=== PATIENT | female | born 1950 | race Caucasian/White ===

== ENCOUNTER 2017-11-15 15:24 | Inpatient (IN) | payer MEDICARE ==
[2017-11-15] MEDS ORDERED: Ondansetron INJ* 2 MG/ML VIAL IV ONE (16:46)
[2017-11-15] MEDS ORDERED: NS 0.9% 1000 ML* 1,000 ML IV ONE (16:46)
[2017-11-15 20:57] LABS: Hematocrit 34 % (35-47); Mean Corpuscular HGB Conc 32 g/dl (31-36); Mean Corpuscular Hemoglobin 30 pg (27-31); Mean Corpuscular Volume 93 fL (80-97); Mean Platelet Volume 7 um3 (7.4-10.4); Platelet Count 231 10^3/ul (150-450); Red Blood Count 3.64 10^6/ul (4.0-5.4); Red Cell Distribution Width 14 % (10.5-15); White Blood Count 24.5 10^3/ul (3.5-10.8)
[2017-11-15 21:13] LABS: EGFR Non-African American 49.2 (>60)
[2017-11-15 21:23] LABS: Monocytes % 2 % (0-13)
[2017-11-15] MEDS ORDERED: NS 0.9% 1000 ML*IV.FLUID IV ONE (21:34)
[2017-11-15] MEDS ORDERED: Levofloxacin 500 MG IVPREMIX(* 500 MG/100 ML BAG IVPB ONE (21:36)
[2017-11-15] MEDS ORDERED: metroNIDAZOLE TAB* 250 MG PO ONE (21:36)
[2017-11-15] MEDS ORDERED: Acetaminophen TAB* 325 MG PO ONE (21:43)
[2017-11-15 22:05] LABS: ABS Neutrophils 23.6 10^3/ul (1.5-7.7)
--- NOTE | 2017-11-15 23:50 | ED ---
Nitish Davidson Gabriel, scribed for Luz Morrison MD on 11/15/17 at 2331 . Progress - Progress Note Progress Note: This patient was signed out from Dr. Fallon, pending disposition. Patient is a 67 F with n/v/d and abd pain. Pt was seen and admitted at [facility] twice in the last two weeks. The patient was feeling better and went to work today but symptoms returned. Currently she is febrile. CXR shows no acute process. Dx gastroenteritis 22:51 We discussed patient care with Dr. Lorenz and they recommended not to perform another CT because the patient has had 2 in the last two weeks. She recommended antibiotic use and accepts the patient for admittance. Pt will be admitted to the hospitalist. Procedure: Nursing staff was not able to get blood through the veins for blood work. So I performed right brachial artery stick and got 30cc of blood. Physical exam VITAL SIGNS: Reviewed. GENERAL: Patient is a well-developed and nourished female who is lying comfortable in the stretcher. Patient is not in any acute respiratory distress. HEAD AND FACE: No signs of trauma. No ecchymosis, hematomas or skull depressions. No sinus tenderness. EYES: PERRLA, EOMI x 2, No injected conjunctiva, no nystagmus. EARS: Hearing grossly intact. Ear canals and tympanic membranes are within normal limits. MOUTH: Oropharynx within normal limits. NECK: Supple, trachea is midline, no adenopathy, no JVD, no carotid bruit, no c- spine tenderness, neck with full ROM. CHEST: Symmetric, no tenderness at palpation LUNGS: Clear to auscultation bilaterally. No wheezing or crackles. CVS: Regular rate and rhythm, S1 and S2 present, no murmurs or gallops appreciated. ABDOMEN: mild abdominal distension with hypoactive bowel sounds EXTREMITIES: FROM in all major joints, no edema, no cyanosis or clubbing. NEURO: Alert and oriented x 3. No acute neurological deficits. Speech is normal and follows commands. SKIN: Dry and warm Course/Dx - Diagnoses Provider Diagnoses: Gastroenteritis The documentation as recorded by the Nitish bacon Gabriel accurately reflects the service I personally performed and the decisions made by , Luz Morrison MD.
[2017-11-16] MEDS ORDERED: Dextrose 50% Syringe 50 ML* 25 GM/50 ML SYRINGE IV PUSH PRN (00:17)
[2017-11-16] MEDS ORDERED: Magnesium Sulfate IV* 3 GM in NS 0.9% 100 ML* 100 ML IVPB ONE (00:42)
[2017-11-16] MEDS ORDERED: Magnesium Sulfate 2 GM IV IVPB ONE (01:00)
[2017-11-16] MEDS: Enoxaparin(*) 40 MG/0.4 ML SYR SUBCUT SCH ×2 (01:55→23:57)
[2017-11-16] MEDS: NS 0.9% 1000 ML* 1,000 ML IV SCH ×2 (02:00→20:12)
[2017-11-16] MEDS ORDERED: Magnesium Sulfate 1 GM IV* 1 GM/100 ML BAG IV ONE (02:00)
--- NOTE | 2017-11-16 07:44 | RAD ---
INDICATION: Fever COMPARISON: November 09, 2016 TECHNIQUE: An AP portable view obtained at 2200 hours is submitted. This examination is limited due to motion artifact FINDINGS: Bones/Soft Tissues: There are no acute bony findings. Cardiomediastinal: The cardiomediastinal silhouette is normal. Lungs: There are no gross infiltrates. Pleura: There are no pleural effusions. Other: None IMPRESSION: LIMITED EXAMINATION DUE TO MOTION. NO GROSS ABNORMALITIES. SUGGEST REPEATING THE EXAMINATION IF CLINICALLY INDICATED.
[2017-11-16 07:56] LABS: Hematocrit 28 % (35-47); Hemoglobin 9.4 g/dl (12.0-16.0); Mean Corpuscular HGB Conc 34 g/dl (31-36); Mean Corpuscular Hemoglobin 31 pg (27-31); Mean Corpuscular Volume 91 fL (80-97); Mean Platelet Volume 8 um3 (7.4-10.4); Platelet Count 200 10^3/ul (150-450); Red Blood Count 3.06 10^6/ul (4.0-5.4); Red Cell Distribution Width 14 % (10.5-15); White Blood Count 17.6 10^3/ul (3.5-10.8)
[2017-11-16 08:10] LABS: EGFR Non-African American 41.3 (>60)
--- NOTE | 2017-11-16 08:17 | RAD ---
INDICATION: Pain and swelling. COMPARISON: None TECHNIQUE: Duplex interrogation of the Lowerextremity was performed. FINDINGS: Deep veins: The common femoral, great saphenous, profunda femoris, proximal, mid, and distal deep femoral, popliteal, posterior tibial, and peroneal veins are patent. There is normal compressibility, augmentation, and phasic flow. Superficial veins: There are no findings of superficial thrombophlebitis. Popliteal fossa:There is no evidence of a popliteal cyst. Soft tissues:There are no soft tissue abnormalities. IMPRESSION: Normal examination. No evidence of deep venous thrombosis
[2017-11-16 08:29] LABS: ABS Basophils 0.1 10^3/ul (0-0.2); ABS Eosinophils 0.2 10^3/ul (0-0.6); ABS Lymphocytes 0.4 10^3/ul (1.0-4.8); ABS Monocytes 0.8 10^3/ul (0-0.8); ABS Neutrophils 16.1 10^3/ul (1.5-7.7); ABS Nucleated RBC 0 10^3/ul; Eosinophil % 0.9 % (0-6); Lymphocyte % 2.3 % (25-47); Nucleated Red Blood Cells % 0
[2017-11-16] MEDS: Mometasone/Formoter 100/5 MDI INH SCH ×2 (08:31→20:55)
[2017-11-16] MEDS: Losartan TAB* 25 MG PO SCH (08:35)
[2017-11-16] MEDS: amLODIPine TAB* 5 MG PO SCH (08:36)
[2017-11-16] MEDS: metroNIDAZOLE TAB* 250 MG PO SCH ×2 (08:36→20:15)
[2017-11-16] MEDS: Ondansetron INJ* 2 MG/ML VIAL IV PRN (08:37)
[2017-11-16] MEDS: guaiFENesin ER TAB 600 MG PO SCH ×2 (08:37→20:15)
[2017-11-16] MEDS: Clopidogrel TAB* 75 MG PO SCH (08:37)
[2017-11-16] MEDS: Insulin LISPRO* 1 UNITS UNIT SUBCUT SCH ×4 (08:38→21:46)
[2017-11-16 08:47] LABS: Urine Appearance Cloudy; Urine Blood 1+ (Negative); Urine Color Amber; Urine Ketones Negative (Negative); Urine Protein 2+(100 mg/dL) (Negative); Urine Specific Gravity 1.021 (1.010-1.030); Urine Urobilinogen Negative (Negative)
[2017-11-16] MEDS ORDERED: Insulin Detemir (NF) 100 UNIT/ML 10 ML VIAL SUBCUT SCH (09:00)
--- NOTE | 2017-11-16 11:16 | HP ---
CC: Dr. Baires; Dr. Schneider * HISTORY AND PHYSICAL: DATE OF ADMISSION: 11/16/17 PRIMARY CARE PROVIDER: Dr. Baires. TARE WEIGHER: Dr. Schneider. CHIEF COMPLAINT: Nausea, vomiting, and diarrhea. HISTORY OF PRESENT ILLNESS: Ms. Cano is a 67-year-old female who has a history of type 2 diabetes, hypertension and hyperlipidemia, who at the end of September 2017 began to have frequent symptoms that prompted multiple trips to the emergency room at [facility]. The patient states that on 10/09/17 she was at a [employer] when she developed headache and felt "disconnected." She was taken to the emergency room and her blood pressure was noted to be very high. She was admitted on the 10/09/17 and discharged home on 10/12/17. The patient on 10/13/17 again had this feeling of being disconnected. She went to the emergency room and was discharged home later that day. On 10/14/17, the patient underwent a stress test. The patient saw Dr. Baires on 10/17/17 and because of the symptoms during her admission, she was referred to see Dr. Schneider. She saw Dr. Schneider on 10/18/17 and at that time was started on Plavix and Lipitor for possible TIA. The patient was also ordered to have an MRI and MRA of the brain. The patient had these done on and is due to follow up with Dr. Schneider on 12/06/17. On 11/05/17, the patient began to have diarrhea and vomiting. She did have one episode of diarrhea prior to her admission on 10/09/18. At this time, the diarrhea and vomiting was more profuse. She felt as if her insides were trembling. On 11/06, the patient was taken to the emergency room and was admitted through . At that time, she was diagnosed with pancreatitis with a lipase in the 600 range and possible colitis. The patient states that she felt better and her diarrhea and vomiting had resolved by the time of discharge. On 11/09/17, the patient again began having diarrhea, vomiting, and this trembling sensation. She again underwent CT scan of the abdomen and pelvis. At that time, the patient was admitted to the intensive care unit due to high fever and hypotension. She was started on what appears to be Flagyl for colitis. She was discharged home on 11/13/17. 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 Baires and was told to stop the antibiotics and a referral to GI was made. On 11/15/17, the patient again started with nausea, vomiting, and diarrhea. Mid morning, she was feeling okay; however, by the afternoon she was feeling very weak. She denies any blood in the stool. She states the stool is brown in color. She does note that since starting Lipitor, she has had muscle aches. The patient does admit to fevers on 11/15/17. She is concerned that with the persistent nausea, vomiting, and diarrhea that she may become dehydrated. The patient was told to present [place] [facility] [place] by her primary care provider. The patient's niece is present and provides all of this history as the patient states that she does not remember details of the events very clearly. The patient's niece also notes that the patient's abdomen appears bloated. She also questions if her symptoms of nausea, vomiting, and diarrhea could be attributed to either the Lipitor or the Plavix as these have always been held while she has been in the hospital and her symptoms would resolve. However, upon returning home, she would start taking the medications again and her symptoms would return. Of note, the patient does describe having muscle aches since starting Lipitor. PAST MEDICAL HISTORY: 1. Type 2 diabetes. 2. Hypertension. 3. Hyperlipidemia. PAST SURGICAL HISTORY: Back surgery, tonsillectomy, and cholecystectomy. MEDICATIONS: 1. Mucinex ER 600 mg p.o. b.i.d. 2. Advair 100/50 one puff inhaled twice daily. 3. Magnesium oxide 400 mg p.o. twice daily. 4. Losartan 100 mg p.o. daily. 5. Metformin 1000 mg p.o. daily. 6. Flagyl 500 mg p.o. t.i.d. 7. Zofran 4 mg p.o. q.8 hours p.r.n. nausea. 8. Levemir insulin 80 units subcutaneous twice daily. 9. Plavix 75 mg p.o. daily. 10. Lipitor 20 mg p.o. daily. 11. Amlodipine 10 mg p.o. daily. 12. Hydrochlorothiazide 25 mg p.o. daily. ALLERGIES: 1. ASPIRIN. 2. ROBITUSSIN DM. 3. ERYTHROMYCIN. 4. HYDROCODONE. 5. PENICILLINS. 6. CAPTOPRIL. FAMILY HISTORY: Mom at the age of 91 of "old age." Dad at the age of 93. He had heart disease and prostate cancer. SOCIAL HISTORY: The patient is a lifelong nonsmoker. She drinks alcohol rarely. 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 She is not . She has no children. Her niece, Estela, phone number is [phone] is her healthcare proxy. REVIEW OF SYSTEMS: A complete 11-system review of systems is obtained. Pertinent positives and negatives are as per HPI and otherwise negative. PHYSICAL EXAMINATION GENERAL: The patient is a well-developed, obese, middle-aged female, lying in the bed in no acute distress. VITAL SIGNS: Blood pressure 164/55, pulse 90, respirations 20, temp 101.6 with a T- max in the emergency room of 102.5, O2 sat 96% on 2 L oxygen. HEENT: Pupils are equal and round. Extraocular muscles are intact. Oropharynx is clear. Oral mucosa is moist. The patient is edentulous. There is no submandibular, cervical, or supraclavicular adenopathy. Thyroid is not enlarged. No thyroid nodules are noted. PULMONARY: Lungs are clear to auscultation bilaterally with few bibasilar crackles. CARDIAC: Normal S1, S2. Regular rate and rhythm. I do not appreciate any murmurs. There is 1+ bilateral lower extremity edema with the right calf being larger than the left. ABDOMEN: Bowel sounds present. Abdomen is soft, nontender. She is moderately distended and tympanic to percussion. MUSCULOSKELETAL: There is no cyanosis or clubbing of the digits. There is full active range of motion of all 4 extremities. SKIN: Warm and dry. There are no rashes. NEURO: Cranial nerves II through XII are grossly intact. Sensation is intact to light touch throughout. Strength is 5/5 and symmetric both upper and lower extremities bilaterally. PSYCH: The patient is alert. She is oriented x3. Affect appears appropriate. DIAGNOSTIC STUDIES/LAB DATA: WBC 24.5, hemoglobin 11.0, hematocrit 34, platelets 231, neutrophils 88%, bands 9%. Sodium 140, potassium 3.6, chloride 107, CO2 26, BUN 16, creatinine 1.10, glucose 108, lactic acid 0.9, calcium 8.2 , magnesium 1.4. Bilirubin 0.9, AST 24, ALT 27, alk phos 47. Troponin 0.03. CRP 33.86. Albumin 2.9, amylase 48, lipase 73. Influenza A and B negative. Chest x-ray official read is pending; however, lungs look clear. EKG reveals normal sinus rhythm with slight ST depression in lead II, V4, V5, and V6. ASSESSMENT AND PLAN: Ms. Cano is a 67-year-old female who has had numerous ER visits and hospitalizations over the last 1-1/2 months for initially potential neurologic event followed by 2 admissions for nausea, vomiting and diarrhea, who represents [place] [facility] with complaints of recurrence of nausea, vomiting, diarrhea, and fever. 1. Nausea, vomiting, and diarrhea. The etiology of this is not clear. The patient was referred to Gastroenterology; however, has not yet been seen by her classification inspector. I do feel at this point it is warranted to have the patient seen by GI in the hospital. A consult will be placed. The patient was diagnosed with colitis previously. Given her elevated white blood cell count, I will go ahead and continue antibiotics with Cipro 400 mg IV q.12 hours and Flagyl 500 mg p.o. q.12 hours. CRP is moderately elevated at 33. I question if she could have infectious colitis versus ischemic colitis. Ischemic seems less likely as she was not having any bloody diarrhea. The patient will have a stool culture, fecal lactoferrin, and Clostridium difficile tests sent when she provide the stool specimen. Of note, the patient's symptoms did begin after initiating Plavix and Lipitor. Nausea and diarrhea are side effects of Lipitor in a relatively high rate. She does state that when she was in the hospital, she was off the Lipitor and Plavix and her symptoms resolved. It is possible that her symptoms are secondary to being on Lipitor while at home. I will hold this. Also, I will check CPK given the patient's complaint of muscle aches on the Lipitor. 2. Fever. The etiology of this is not clear. I suspect it is related to her vomiting and diarrhea. She has now had several emergency room visits and hospitalizations for the same symptoms. No clear cause is yet to be identified. I question if an EGD and colonoscopy would be warranted in this situation. 3. Type 2 diabetes. The patient will be maintained on her usual dose of Levemir. She will also be placed on a lispro sliding scale. 4. Hypertension. The patient's blood pressure is moderately elevated currently. We will need to follow her blood pressure and adjust her antihypertensive as necessary. Of note, the patient states that her last dose of hydrochlorothiazide was within the last couple days. She is therefore only on losartan and amlodipine. Given the electrolyte abnormalities, that can be associated with hydrochlorothiazide, a different antihypertensive could be considered. 5. Hyperlipidemia. For now, I am going to hold the patient's Lipitor as it is possible that this is causing her nausea, vomiting, and diarrhea. As above, we will check a CPK if the patient does complain of muscle aches since initiating this medication. 6. DVT prophylaxis. According to the Adult Thrombosis Prophylaxis Risk Factor Assessment Guide, the patient has a total risk factor score of 4, making her high risk and she will be placed on Lovenox 40 mg subcutaneous daily. 7. Code status is full. TIME SPENT: Sixty-five minutes was spent admitting this patient. [id number]/CPS #: [id number] CANDACE
[2017-11-16] MEDS ORDERED: PROCHLORPERAZINE INJ 5 MG/ML 2 ML VIAL IV ONE (11:53)
[2017-11-16] MEDS ORDERED: Insulin GLARGINE(*) 1 UNITS UNIT SUBCUT SCH ×2 (11:56→12:00)
[2017-11-16] MEDS ORDERED: Acetaminophen TAB* 325 MG PO PRN (15:44)
[2017-11-16] MEDS ORDERED: Polyethylene Glycol 3350 BTL* 238 GM BTL PO ONE (16:00)
[2017-11-16] MEDS ORDERED: PEG 3000 GI LAVAGE* 1 GALLON PO ONE (16:42)
[2017-11-16] MEDS ORDERED: PROCHLORPERAZINE INJ 5 MG/ML 2 ML VIAL IV PRN (16:48)
--- NOTE | 2017-11-16 17:32 | PN ---
Subjective Date of Service: 11/16/17 Interval History: Patient is continuing with nausea and chills. Patient denies fevers. Patient has continued diarrhea with slight abdominal pain and no hematochezia. Patient denies CP, SOB, palpitations, Dysuria, headache, dizziness, or other pain. Patient complains of swelling in her B/L LE. Family History: Unchanged from Admission Social History: Unchanged from Admission Past Medical History: Unchanged from Admission Objective Active Medications: Acetaminophen (Tylenol Tab*) 650 mg PO Q6H PRN PRN Reason: FEVER/PAIN Last Admin: 11/16/17 16:10 Dose: 650 mg Amlodipine Besylate (Norvasc Tab*) 10 mg PO DAILY [facility] Last Admin: 11/16/17 08:36 Dose: 10 mg Clopidogrel Bisulfate (Plavix Tab*) 75 mg PO DAILY [facility] Last Admin: 11/16/17 08:37 Dose: 75 mg Dextrose (D50w Syringe 50 Ml*) 12.5 gm IV PUSH .FOR FS < 60 - SS PRN PRN Reason: FS < 60 Enoxaparin Sodium (Lovenox(*)) 40 mg SUBCUT Q24H [facility] Last Admin: 11/16/17 01:55 Dose: 40 mg Guaifenesin (Mucinex*) 600 mg PO BID [facility] Last Admin: 11/16/17 08:37 Dose: 600 mg Sodium Chloride (Ns 0.9% 1000 Ml*) 1,000 mls @ 75 mls/hr IV PER RATE [facility] Last Admin: 11/16/17 02:00 Dose: 75 mls/hr Ciprofloxacin/Dextrose (Cipro 400 Mg Ivpremix(*)) 400 mg in 200 mls @ 200 mls/ hr IVPB Q12H [facility] Insulin Glargine (Lantus(*)) 40 units SUBCUT BID [facility] Insulin Human Lispro (Humalog*) 0 units SUBCUT ACHS [facility] PRN Reason: Protocol Last Admin: 11/16/17 12:18 Dose: 3 unit Losartan Potassium (Cozaar Tab*) 100 mg PO DAILY [facility] Last Admin: 11/16/17 08:35 Dose: 100 mg Metronidazole (Flagyl Tab*) 500 mg PO BID [facility] Last Admin: 11/16/17 08:36 Dose: 500 mg Mometasone Furoate/Formoterol Fumar (Dulera 100/5 Mdi*) 2 puff INH BID [facility] Last Admin: 11/16/17 08:31 Dose: 2 puff Ondansetron HCl (Zofran Inj*) 4 mg IV Q6H PRN PRN Reason: NAUSEA Last Admin: 11/16/17 08:37 Dose: 4 mg Prochlorperazine Edisylate (Compazine Inj*) 5 mg IV Q6H PRN PRN Reason: NAUSEA/VOMITING Vital Signs - 8 hr 11/16/17 15:40 Temperature 101.5 F Pulse Rate 100 Respiratory 16 Rate Blood Pressure 132/94 (mmHg) O2 Sat by Pulse 92 Oximetry Oxygen Devices in Use Now: None Appearance: Patient is a 67yo female who appears stateg age and is sitting in the bed in [facility]. Eyes: No Scleral Icterus, PERRLA Ears/Nose/Mouth/Throat: NL Teeth, Lips, Gums, Clear Oropharnyx, Mucous Membranes Moist Neck: NL Appearance and Movements; NL JVP, Trachea Midline Respiratory: Symmetrical Chest Expansion and Respiratory Effort, Clear to Auscultation Cardiovascular: NL Sounds; No Murmurs; No JVD, RRR, - - 1+ edema in B/L LE. Abdominal: NL Sounds; No Tenderness; No Distention, No Hepatosplenomegaly Lymphatic: No Cervical Adenopathy Extremities: No Edema, No Clubbing, Cyanosis Skin: No Rash or Ulcers, No Nodules or Sclerosis Neurological: Alert and Oriented x 3, NL Sensation, NL Muscle Strength and Tone Result Diagrams: 11/16/17 07:40 11/16/17 07:40 Microbiology and Other Data: Microbiology 11/16/17 10:57 Stool Gross Appearance - Final Stool C. difficile DNA Amplification - Final 027 Presumptive NEGATIVE Toxigenic C.diff NEGATIVE Stool Lactoferrin - Final Assess/Plan/Problems-Billing Assessment: Patient is a 67yo female with a H signficant for HTN. HLD, DM II, possible TIA who has been admitted several times at [facility] for episodes of sepsis with abdominal pain, nausea, vomiting and diarrhea without blood. Patient is improving on antibiotics and is scheduled for colonoscopy in AM. - Patient Problems (1) Colitis Current Visit: Yes Status: Acute Code(s): K52.9 - NONINFECTIVE GASTROENTERITIS AND COLITIS, UNSPECIFIED SNOMED Code(s): 45838335 Comment: Appreciate GI input. Colitis of cecum on previous abdominal CT at [place]. No history of bloody or black diarrhea. Fecal lactoferrin positive. Repeated high fevers and sepsis x2 at [place]. Resolves with antibiotics but then recurs. Stool culture pending. C. diff negative. Plan for Colonoscopy in AM. Possible ischemic/infectious colitis. Continue Cipro/Flagyl. (2) HTN (hypertension) Current Visit: Yes Status: Acute Code(s): I10 - ESSENTIAL (PRIMARY) HYPERTENSION SNOMED Code(s): 84150082 Comment: Normotensive, continue losartan. (3) HLD (hyperlipidemia) Current Visit: Yes Status: Acute Code(s): E78.5 - HYPERLIPIDEMIA, UNSPECIFIED SNOMED Code(s): 99094629 Comment: Hold lipitor for concern of N/V/D. Not likely underlying cause due to positive lactoferrin. Lipid panel pending. Possibly contributing to ischemic colitis. (4) Diarrhea Current Visit: Yes Status: Acute Code(s): R19.7 - DIARRHEA, UNSPECIFIED SNOMED Code(s): 37146386 Comment: Intermittent, without blood. C. diff negative. Stool lactoferrin positive. Stool culture pending. 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 No other exposures to farm animals, spoiled food, sick contacts, or other travel. (5) Nausea Current Visit: Yes Status: Acute Code(s): R11.0 - NAUSEA SNOMED Code(s): 711150127 Comment: Continue Zofran and Compazine PRN. (6) Pulmonary nodules Current Visit: Yes Status: Acute Code(s): R91.8 - OTHER NONSPECIFIC ABNORMAL FINDING OF LUNG FIELD SNOMED Code(s): 260114896 Comment: Several Small pulmonary nodules on CT at [place]. Needs F/U in 6 months. Should follow with pulmonology as scheduled. (7) DVT prophylaxis Current Visit: Yes Status: Acute Code(s): CVV3022 - SNOMED Code(s): 642263688 Comment: Lovenox (8) Full code status Current Visit: Yes Status: Acute Code(s): Z78.9 - OTHER SPECIFIED HEALTH STATUS SNOMED Code(s): 888466895 Status and Disposition: Admitted inpatient.
--- NOTE | 2017-11-16 18:17 | ED ---
Sreedhar Davidson Angela, scribed for Cesar Fallon MD on 11/15/17 at 1706 . GI/ HPI - HPI Summary HPI Summary: This pt is a 67 y/o female presenting to [facility] via EMS c/o nausea, vomiting, diarrhea, and abdominal distension for approximately 1 month. Daughter reports the pt was seen in [facility] on 11/06 for vomiting, diarrhea, shaking and trembling. 2 days later the pt was discharged home with a diagnosis of mild pancreatitis and mild colitis. She was referred to a GI doctor. Pt went back to [place] [facility] on 11/09 for the same symptoms and had a CT abd/pel that was negative. On 11/13/17 pt had a chest CT and was found to have pulmonary nodules. She notes some abdominal discomfort and intermittent fever. Daughter states C. Diff was ruled out at [facility]. Daughter reports that pt has seen Dr. Schneider, who did a neuro exam for "seeing thing peripherally" and for feeling pt's body "didn't feel like it was connected." On 10/24/17 pt had an MRA and MRI. Daughter does not know the results of the these tests. 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 PMHx: diabetes, HTN. - History of Current Complaint Chief Complaint: EDNauseaVomitDiarrh Stated Complaint: N/V/D Hx Obtained From: Patient Onset/Duration: Started Weeks Ago, Still Present Timing: Constant, Lasting Weeks Current Severity: Moderate Pain Intensity: 0 Associated Signs and Symptoms: Positive: Nausea, Vomiting, Diarrhea, Fever - intermittent, Other: - abd distension Aggravating Factor(s): Nothing Alleviating Factor(s): Nothing - Allergy/Home Medications Allergies/Adverse Reactions: Allergies Allergy/AdvReac Type Severity Reaction Status Date / Time aspirin Allergy Severe Hives Verified 11/16/17 00:39 Penicillins Allergy Severe Hives Verified 11/16/17 00:38 captopril Allergy Unknown Verified 11/16/17 00:40 Reaction Details hydrocodone Allergy Hives Verified 11/16/17 00:40 dextromethorphan AdvReac Severe Vomiting Verified 11/16/17 00:36 erythromycin base AdvReac Severe Vomiting Verified 11/16/17 00:38 guaifenesin AdvReac Severe Vomiting Verified 11/16/17 00:37 Home Medications: Home Medications Atorvastatin* [Lipitor*] 20 mg PO DAILY 11/15/17 [History Confirmed 11/15/17] Clopidogrel TAB* [Plavix TAB*] 75 mg PO DAILY 11/15/17 [History Confirmed ] Fluticasone-Salmeterol 100-50* [Advair Diskus 100-50*] 1 puff INH BID 11/15/17 [ History Confirmed 11/15/17] Hydrochlorothiazide TAB* [Hydrodiuril TAB*] 25 mg PO DAILY 11/15/17 [History Confirmed 11/15/17] Insulin Detemir (NF) [Levemir (NF)] 80 units SUBCUT BID 11/15/17 [History Confirmed 11/15/17] Losartan TAB* [Cozaar TAB*] 100 mg PO DAILY 11/15/17 [History Confirmed 11/15/17 ] Magnesium Oxide [Magnesium] 400 mg PO BID 11/15/17 [History Confirmed 11/15/17] Ondansetron TAB* [Zofran 4 MG Tab*] 4 mg PO Q8HR PRN 11/15/17 [History Confirmed 11/15/17] amLODIPine TAB* [Norvasc 5 mg TAB*] 10 mg PO DAILY 11/15/17 [History Confirmed 11/15/17] guaiFENesin ER TAB [Mucinex*] 600 mg PO BID 11/15/17 [History Confirmed 11/15/17 ] metFORMIN* [Glucophage 1000 MG TAB *] 1,000 mg PO DAILY 11/15/17 [History Confirmed 11/15/17] metroNIDAZOLE TAB* [Flagyl 250 mg TAB*] 500 mg PO TID 11/15/17 [History Confirmed 11/15/17] PMH/Surg Hx/FS Hx/Imm Hx Endocrine/Hematology History: Reports: Hx Diabetes Cardiovascular History: Reports: Hx Hypertension Denies: Hx Pacemaker/ICD History: Denies: Hx Renal Disease Sensory History: Denies: Hx Hearing Aid Psychiatric History: Denies: Hx Panic Disorder - Surgical History Surgery Procedure, Year, and Place: 1989- back surgery. TONSILS Infectious Disease History: No Infectious Disease History: Denies: Traveled Outside the [place] in Last 30 Days - Family History Known Family History: Negative: Cardiac Disease - Social History Alcohol Use: None Substance Use Type: Reports: None Smoking Status (MU): Never Smoked Tobacco Review of Systems Positive: Fever Gastrointestinal: Other - abd distension Positive: Abdominal Pain, Vomiting, Diarrhea, Nausea All Other Systems Reviewed And Are Negative: Yes Physical Exam - Summary Physical Exam Summary: VITAL SIGNS: Reviewed. GENERAL: Patient is an obese female with dry oral mucosa. HEAD AND FACE: No signs of trauma. No ecchymosis, hematomas or skull depressions. No sinus tenderness. EYES: PERRLA, EOMI x 2, No injected conjunctiva, no nystagmus. EARS: Hearing grossly intact. Ear canals and tympanic membranes are within normal limits. MOUTH: Oropharynx within normal limits. Dry oral mucosa. NECK: Supple, trachea is midline, no adenopathy, no JVD, no carotid bruit, no c- spine tenderness, neck with full ROM. CHEST: Symmetric, no tenderness at palpation LUNGS: Clear to auscultation bilaterally. No wheezing or crackles. CVS: Regular rate and rhythm, S1 and S2 present, no murmurs or gallops appreciated. ABDOMEN: Soft. Pt has epigastric tenderness. There is abdominal distension. No rebound no guarding, and no masses palpated. Bowel sounds are normal. EXTREMITIES: FROM in all major joints, no edema, no cyanosis or clubbing. NEURO: Alert and oriented x 3. No acute neurological deficits. Speech is normal and follows commands. SKIN: Dry and warm Triage Information Reviewed: Yes Vital Signs On Initial Exam: Initial Vitals Temp Pulse Resp BP Pulse Ox 102.5 F 96 20 133/44 94 11/15/17 15:42 11/15/17 15:42 11/15/17 15:42 11/15/17 15:42 11/15/17 15:42 Vital Signs Reviewed: Yes Diagnostics - Vital Signs Vital Signs Temp Pulse Resp BP Pulse Ox 11/15/17 15:42 102.5 F 96 20 133/44 94 - Laboratory Lab Results: Lab Results 11/15/17 11/15/17 11/15/17 Range/Units 18:27 20:45 20:45 WBC 24.5 H (3.5-10.8) 10^3/ul RBC 3.64 L (4.0-5.4) 10^6/ul Hgb 11.0 L (12.0-16.0) g/dl Hct 34 L (35-47) % MCV 93 (80-97) fL MCH 30 (27-31) pg MCHC 32 (31-36) g/dl RDW 14 (10.5-15) % Plt Count 231 (150-450) 10^3/ul MPV 7 L (7.4-10.4) um3 Neut % (Auto) Not Reportable Lymph % (Auto) Not Reportable Gillespie % (Auto) Not Reportable Eos % (Auto) Not Reportable Baso % (Auto) Not Reportable Absolute Neuts (auto) 23.6 H (1.5-7.7) 10^3/ul Absolute Lymphs (auto) Not Reportable Absolute Monos (auto) Not Reportable Absolute Eos (auto) Not Reportable Absolute Basos (auto) Not Reportable Absolute Nucleated RBC Not Reportable Immature Gran % 9 (0-9) % Neutrophils % 88 H (38-83) % Band Neutrophils % 9 H (0-8) % Lymphocytes % 1 L (25-47) % Monocytes % 2 (0-13) % Eosinophils % 0 (0-6) % Basophils % 0 (0-2) % Nucleated RBC % Not Reportable Abs Neuts (Manual) 21.6 H (1.5-7.7) 10^3/ul Abs Monocytes (Manual) 0.5 (0-0.8) 10^3/ul Absolute Eos (Manual) 0 (0-0.6) 10^3/ul Abs Basophils (Manual) 0 (0-0.2) 10^3/ul Toxic Granulation 2+ Normal RBC Morphology Normal (Normal) Sodium 140 (133-145) mmol/L Potassium 3.6 (3.5-5.0) mmol/L Chloride 107 (101-111) mmol/L Carbon Dioxide 26 (22-32) mmol/L Anion Gap 7 (2-11) mmol/L BUN 16 (6-24) mg/dL Creatinine 1.10 H (0.51-0.95) mg/dL Est GFR ( Amer) 63.3 (>60) Est GFR (Non-Af Amer) 49.2 (>60) BUN/Creatinine Ratio 14.5 (8-20) Glucose 108 H (70-100) mg/dL Lactic Acid (0.5-2.0) mmol/L Calcium 8.2 L (8.6-10.3) mg/dL Magnesium 1.4 L (1.9-2.7) mg/dL Total Bilirubin 0.90 (0.2-1.0) mg/dL AST 24 (13-39) U/L ALT 27 (7-52) U/L Alkaline Phosphatase 47 (34-104) U/L Total Creatine Kinase 46 (10-223) U/L Troponin I 0.03 (<0.04) ng/mL C-Reactive Protein 33.86 H (< 5.00) mg/L Total Protein 5.5 L (6.4-8.9) g/dL Albumin 2.9 L (3.2-5.2) g/dL Globulin 2.6 (2-4) g/dL Albumin/Globulin Ratio 1.1 (1-3) Amylase 48 (29-103) U/L Lipase 73 (11.0-82.0) U/L Influenza A (Rapid) Negative (Negative) Influenza B (Rapid) Negative (Negative) 11/15/17 Range/Units 22:45 WBC (3.5-10.8) 10^3/ul RBC (4.0-5.4) 10^6/ul Hgb (12.0-16.0) g/dl Hct (35-47) % MCV (80-97) fL MCH (27-31) pg MCHC (31-36) g/dl RDW (10.5-15) % Plt Count (150-450) 10^3/ul MPV (7.4-10.4) um3 Neut % (Auto) Lymph % (Auto) Gillespie % (Auto) Eos % (Auto) Baso % (Auto) Absolute Neuts (auto) (1.5-7.7) 10^3/ul Absolute Lymphs (auto) Absolute Monos (auto) Absolute Eos (auto) Absolute Basos (auto) Absolute Nucleated RBC Immature Gran % (0-9) % Neutrophils % (38-83) % Band Neutrophils % (0-8) % Lymphocytes % (25-47) % Monocytes % (0-13) % Eosinophils % (0-6) % Basophils % (0-2) % Nucleated RBC % Abs Neuts (Manual) (1.5-7.7) 10^3/ul Abs Monocytes (Manual) (0-0.8) 10^3/ul Absolute Eos (Manual) (0-0.6) 10^3/ul Abs Basophils (Manual) (0-0.2) 10^3/ul Toxic Granulation Normal RBC Morphology (Normal) Sodium (133-145) mmol/L Potassium (3.5-5.0) mmol/L Chloride (101-111) mmol/L Carbon Dioxide (22-32) mmol/L Anion Gap (2-11) mmol/L BUN (6-24) mg/dL Creatinine (0.51-0.95) mg/dL Est GFR ( Amer) (>60) Est GFR (Non-Af Amer) (>60) BUN/Creatinine Ratio (8-20) Glucose (70-100) mg/dL Lactic Acid 0.9 (0.5-2.0) mmol/L Calcium (8.6-10.3) mg/dL Magnesium (1.9-2.7) mg/dL Total Bilirubin (0.2-1.0) mg/dL AST (13-39) U/L ALT (7-52) U/L Alkaline Phosphatase (34-104) U/L Total Creatine Kinase (10-223) U/L Troponin I (<0.04) ng/mL C-Reactive Protein (< 5.00) mg/L Total Protein (6.4-8.9) g/dL Albumin (3.2-5.2) g/dL Globulin (2-4) g/dL Albumin/Globulin Ratio (1-3) Amylase (29-103) U/L Lipase (11.0-82.0) U/L Influenza A (Rapid) (Negative) Influenza B (Rapid) (Negative) Result Diagrams: 11/16/17 07:40 11/16/17 07:40 Lab Statement: Any lab studies that have been ordered have been reviewed, and results considered in the medical decision making process. - EKG 17:11 Cardiac Rate: NL EKG Rhythm: Sinus Rhythm - at 90 bpm EKG Interpretation: ST depression V4-V6. GIGU Course/Dx - Course Assessment/Plan: This pt is a 67 y/o female presenting to [facility] via EMS c/o nausea, vomiting, diarrhea, and abdominal distension for approximately 1 month. Daughter reports the pt was seen in [place] [facility] on 11/06 for vomiting, diarrhea, shaking and trembling. 2 days later the pt was discharged home with a diagnosis of mild pancreatitis and mild colitis. She was referred to a GI doctor. Pt went back to [facility] on 11/09 for the same symptoms and had a CT abd/pel that was negative. On 11/13/17 pt had a chest CT and was found to have pulmonary nodules. She notes some abdominal discomfort and intermittent fever. Daughter states C. Diff was ruled out at [facility]. Influenza A and B is negative. We are still waiting for the blood work. I will sign the pt out to Dr. Morrison, pending disposition, awaiting blood work. At this point the pt was given IV fluids and Zofran. Pt is currently stable at sign out. - Diagnoses Provider Diagnoses: Gastroenteritis Discharge - Discharge Plan Condition: Stable Disposition: ADMITTED TO [facility] The documentation as recorded by the Sreedhar bacon Angela accurately reflects the service I personally performed and the decisions made by me, Cesar Fallon MD.
--- NOTE | 2017-11-16 20:27 | CONS ---
CONSULTATION REPORT: DATE OF CONSULT: 11/16/17 REASON FOR CONSULTATION: Nausea, vomiting, diarrhea, abdominal discomfort, and abdominal CT scan revealing possible colitis. HISTORY OF PRESENT ILLNESS: A 67-year-old lady with past medical history of hypercholesterolemia, diabetes, hypertension, was admitted with complaint of intermittent nausea, vomiting, diarrhea, abdominal distention. She was admitted at [facility] twice during the past 10 days with sepsis syndrome, but extensive workup was inconclusive. Due to persistent symptoms, she was readmitted at [facility]. The patient reports that she has intermittent nonbloody diarrhea along with intermittent nausea, vomiting. She denies any abdominal pain today, but had bloating and discomfort. She had 2 CT scans performed during the past 10 days, which were inconclusive, but also revealed some inflammation in the colon. Her lab work revealed leukocytosis. Stool cultures and C. diff toxins were negative, but stool lactoferrin was positive. At present, she has been complaining of feverish feeling and rigors and chills. No complaint of chest pain, shortness of breath. No hematemesis, melena, or hematochezia. PAST MEDICAL HISTORY: Hypertension, diabetes, chronic kidney disease. PAST SURGICAL HISTORY: 1. Back surgery in 1988. 2. Colonoscopy [place] [address] Lee, revealed tubulovillous adenoma. FAMILY HISTORY: Significant for coronary artery disease. SOCIAL HISTORY: No alcohol use, smoking or substance abuse. ALLERGIES: To ASPIRIN, DEXTROMETHORPHAN, ERYTHROMYCIN, HYDROCODONE, PENICILLIN , CAPTOPRIL. PHYSICAL EXAMINATION: Elderly lady, lying in the bed, without any obvious discomfort. Skin warm and dry without rash. HEENT: Exam unremarkable. Chest : Cleat to auscultate. CVS: S1, S2 regular, without murmur or gallops. Abdomen: Obese, distended, but nontender. No organomegaly appreciated. Bowel sounds are normal. Extremities: Without edema, clubbing or cyanosis. Neurologic: Alert, oriented to time, place and person. DIAGNOSTIC STUDIES/LAB DATA: Her lab work revealed elevated WBC 17.6, which has improved from 24.5 yesterday, hemoglobin 9.4, creatinine 1.28, lactic acid 0.9. Influenza A and B rapid test was negative. Stool tests were negative for C. diff toxin, but fecal lactoferrin was positive. ASSESSMENT: A 67-year-old lady with complaint of intermittent nausea, vomiting , diarrhea, abdominal distention for the past [address] scan revealed nonspecific thickening in the bowel. She also had underlying history of hypercholesterolemia and diabetes. These symptoms could be due to ischemic colitis. Stool studies were negative for C. diff colitis, but lactoferrin was positive. RECOMMENDATIONS: 1. Continue empirical treatment with ciprofloxacin and Flagyl. 2. Continue supportive care and IV fluids. 3. Schedule for diagnostic colonoscopy in the morning. 4. Further recommendations to follow. [id number]/[facility] #: [id number] [facility]
[2017-11-16] MEDS: Insulin GLARGINE(*) 1 UNITS UNIT SUBCUT SCH (21:54)
[2017-11-16] MEDS: Ciprofloxacin 400MG IVPREMIX(* 400 MG/200 ML BAG IVPB SCH (23:42)
[2017-11-17 07:40] LABS: ABS Basophils 0 10^3/ul (0-0.2); ABS Eosinophils 0.2 10^3/ul (0-0.6); ABS Lymphocytes 0.7 10^3/ul (1.0-4.8); ABS Monocytes 0.6 10^3/ul (0-0.8); ABS Neutrophils 10.2 10^3/ul (1.5-7.7); ABS Nucleated RBC 0 10^3/ul; Eosinophil % 1.9 % (0-6); Hematocrit 26 % (35-47); Hemoglobin 9.1 g/dl (12.0-16.0); Lymphocyte % 5.7 % (25-47); Mean Corpuscular HGB Conc 35 g/dl (31-36); Mean Corpuscular Hemoglobin 31 pg (27-31); Mean Corpuscular Volume 90 fL (80-97); Mean Platelet Volume 8 um3 (7.4-10.4); Nucleated Red Blood Cells % 0; Platelet Count 184 10^3/ul (150-450); Red Blood Count 2.92 10^6/ul (4.0-5.4); Red Cell Distribution Width 14 % (10.5-15); White Blood Count 11.6 10^3/ul (3.5-10.8)
[2017-11-17 07:52] LABS: EGFR Non-African American 42.1 (>60)
[2017-11-17] MEDS: Insulin LISPRO* 1 UNITS UNIT SUBCUT SCH ×4 (08:42→21:41)
[2017-11-17] MEDS: Mometasone/Formoter 100/5 MDI INH SCH ×2 (08:47→21:33)
[2017-11-17] MEDS: Losartan TAB* 25 MG PO SCH (09:30)
[2017-11-17] MEDS: guaiFENesin ER TAB 600 MG PO SCH ×2 (09:31→21:39)
[2017-11-17] MEDS: Clopidogrel TAB* 75 MG PO SCH (09:31)
[2017-11-17] MEDS: Insulin GLARGINE(*) 1 UNITS UNIT SUBCUT SCH ×2 (09:31→21:41)
[2017-11-17] MEDS: metroNIDAZOLE TAB* 250 MG PO SCH ×2 (09:31→21:39)
[2017-11-17] MEDS: amLODIPine TAB* 5 MG PO SCH (09:31)
[2017-11-17] MEDS: Ciprofloxacin 400MG IVPREMIX(* 400 MG/200 ML BAG IVPB SCH ×2 (10:54→21:43)
[2017-11-17] MEDS: NS 0.9% 1000 ML* 1,000 ML IV SCH (11:00)
[2017-11-17] MEDS ORDERED: fentaNYL* 50 MCG/ML 2 ML VIAL (100 MCG VIAL) ONE (14:24)
[2017-11-17] MEDS ORDERED: Midazolam* 1 MG/ML 10 ML VIAL (10 MG) ONE (14:24)
--- NOTE | 2017-11-17 15:53 | PN ---
Progress Note - Progress Note Date of Service: 11/17/17 Note: 67 yr old lady with nausea, vomiting & diarrhea. CT-scan showed possible colitis Labs: Leukocytosis improving. Stools: Negative C. difficile toxin but (+) lactoferrin Colonoscopy (11/17/2017) showed two large sessile polyps in cecum & ascending colon (removed with snare), left sided diverticulosis, hemorrhoids. Otherwise normal mucosa. Random biopsies taken. Recommendations: 1. Check pathology results. 2. Advance diet as tolerated.
[2017-11-17] MEDS ORDERED: Potassium Chlor TAB* 20 MEQ TAB.ER PO ONE (18:09)
--- NOTE | 2017-11-17 18:15 | PN ---
Subjective Date of Service: 11/17/17 Interval History: Patient has no new complaints. Occasional nausea and no more diarrhea. Patient tolerated her bowel prep well. Patient denies CP, SOB, N/V, abdominal pain, F/C , or other abnormality. Patient tolerated her colonoscopy well and was examined in the postoperative period. Family History: Unchanged from Admission Social History: Unchanged from Admission Past Medical History: Unchanged from Admission Objective Active Medications: Acetaminophen (Tylenol Tab*) 650 mg PO Q6H PRN PRN Reason: FEVER/PAIN Last Admin: 11/16/17 16:10 Dose: 650 mg Amlodipine Besylate (Norvasc Tab*) 10 mg PO DAILY [facility] Last Admin: 11/17/17 09:31 Dose: 10 mg Clopidogrel Bisulfate (Plavix Tab*) 75 mg PO DAILY [facility] Last Admin: 11/17/17 09:31 Dose: 75 mg Dextrose (D50w Syringe 50 Ml*) 12.5 gm IV PUSH .FOR FS < 60 - SS PRN PRN Reason: FS < 60 Enoxaparin Sodium (Lovenox(*)) 40 mg SUBCUT Q24H [facility] Last Admin: 11/16/17 23:57 Dose: 40 mg Guaifenesin (Mucinex*) 600 mg PO BID [facility] Last Admin: 11/17/17 09:31 Dose: Not Given Sodium Chloride (Ns 0.9% 1000 Ml*) 1,000 mls @ 75 mls/hr IV PER RATE [facility] Last Admin: 11/17/17 11:00 Dose: 75 mls/hr Ciprofloxacin/Dextrose (Cipro 400 Mg Ivpremix(*)) 400 mg in 200 mls @ 200 mls/ hr IVPB Q12H [facility] Last Admin: 11/17/17 10:54 Dose: 200 mls/hr Insulin Glargine (Lantus(*)) 40 units SUBCUT BID [facility] Last Admin: 11/17/17 09:31 Dose: Not Given Insulin Human Lispro (Humalog*) 0 units SUBCUT ACHS [facility] PRN Reason: Protocol Last Admin: 11/17/17 16:55 Dose: Not Given Losartan Potassium (Cozaar Tab*) 100 mg PO DAILY [facility] Last Admin: 11/17/17 09:30 Dose: 100 mg Metronidazole (Flagyl Tab*) 500 mg PO BID [facility] Last Admin: 11/17/17 09:31 Dose: 500 mg Mometasone Furoate/Formoterol Fumar (Dulera 100/5 Mdi*) 2 puff INH BID [facility] Last Admin: 11/17/17 08:47 Dose: 2 puff Ondansetron HCl (Zofran Inj*) 4 mg IV Q6H PRN PRN Reason: NAUSEA Last Admin: 11/16/17 08:37 Dose: 4 mg Prochlorperazine Edisylate (Compazine Inj*) 5 mg IV Q6H PRN PRN Reason: NAUSEA/VOMITING Vital Signs - 8 hr 11/17/17 11:17 Temperature 97.8 F Pulse Rate 71 Respiratory 16 Rate Blood Pressure 126/90 (mmHg) O2 Sat by Pulse 98 Oximetry Oxygen Devices in Use Now: None Appearance: Patient is a 67yo female who appears stated age and is sitting in the bed in [facility]. Eyes: No Scleral Icterus, PERRLA Ears/Nose/Mouth/Throat: NL Teeth, Lips, Gums, Clear Oropharnyx, Mucous Membranes Moist Neck: NL Appearance and Movements; NL JVP, Trachea Midline Respiratory: Symmetrical Chest Expansion and Respiratory Effort, Clear to Auscultation Cardiovascular: NL Sounds; No Murmurs; No JVD, RRR, No Edema Abdominal: NL Sounds; No Tenderness; No Distention, No Hepatosplenomegaly Lymphatic: No Cervical Adenopathy Extremities: No Edema, No Clubbing, Cyanosis Skin: No Rash or Ulcers, No Nodules or Sclerosis Neurological: Alert and Oriented x 3, NL Sensation, NL Muscle Strength and Tone Result Diagrams: 11/17/17 07:16 11/17/17 07:16 Additional Lab and Data: Lab Results Microbiology and Other Data: Microbiology 11/16/17 10:57 Stool Gross Appearance - Final Stool C. difficile DNA Amplification - Final 027 Presumptive NEGATIVE Toxigenic C.diff NEGATIVE Stool Lactoferrin - Final Assess/Plan/Problems-Billing Assessment: Patient is a 67yo female with a H signficant for HTN. HLD, DM II, possible TIA who has been admitted several times at [facility] for episodes of sepsis with abdominal pain, nausea, vomiting and diarrhea without blood. Patient is improving on antibiotics and is scheduled for colonoscopy in AM. - Patient Problems (1) Colitis Current Visit: Yes Status: Acute Code(s): K52.9 - NONINFECTIVE GASTROENTERITIS AND COLITIS, UNSPECIFIED SNOMED Code(s): 75266027 Comment: Appreciate GI input. Colitis of cecum on previous abdominal CT at [place]. No history of bloody or black diarrhea. Fecal lactoferrin positive. Repeated high fevers and sepsis x2 at [place]. Resolves with antibiotics but then recurs. Stool culture pending. C. diff negative. Continue Cipro/Flagyl. Colonoscopy shows only 2 large polyps. No signs of inflammation. Biopsies taken for microscopic colitis. Will advance diet as tolerated. No indication for repeat abdominal imaging at this time. (2) HTN (hypertension) Current Visit: Yes Status: Acute Code(s): I10 - ESSENTIAL (PRIMARY) HYPERTENSION SNOMED Code(s): 72782394 Comment: Normotensive, continue losartan. (3) HLD (hyperlipidemia) Current Visit: Yes Status: Acute Code(s): E78.5 - HYPERLIPIDEMIA, UNSPECIFIED SNOMED Code(s): 41099991 Comment: Hold lipitor for concern of N/V/D. Not likely underlying cause due to positive lactoferrin. Lipid panel shows low LDL and HDL. Will not resume lipitor at this time. (4) Diarrhea Current Visit: Yes Status: Acute Code(s): R19.7 - DIARRHEA, UNSPECIFIED SNOMED Code(s): 99513146 Comment: Intermittent, without blood. C. diff negative. Stool lactoferrin positive. Stool culture pending. 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 No other exposures to farm animals, spoiled food, sick contacts, or other travel. (5) Nausea Current Visit: Yes Status: Acute Code(s): R11.0 - NAUSEA SNOMED Code(s): 217737519 Comment: Continue Zofran and Compazine PRN. (6) Pulmonary nodules Current Visit: Yes Status: Acute Code(s): R91.8 - OTHER NONSPECIFIC ABNORMAL FINDING OF LUNG FIELD SNOMED Code(s): 234375196 Comment: Several Small pulmonary nodules on CT at [place]. Needs F/U in 6 months. Should follow with pulmonology as scheduled. (7) DVT prophylaxis Current Visit: Yes Status: Acute Code(s): UGZ1712 - SNOMED Code(s): 802447487 Comment: Lovenox (8) Full code status Current Visit: Yes Status: Acute Code(s): Z78.9 - OTHER SPECIFIED HEALTH STATUS SNOMED Code(s): 018771420 Status and Disposition: Admitted inpatient.
[2017-11-18] MEDS: Enoxaparin(*) 40 MG/0.4 ML SYR SUBCUT SCH (01:49)
[2017-11-18 06:58] LABS: ABS Basophils 0 10^3/ul (0-0.2); ABS Eosinophils 0.3 10^3/ul (0-0.6); ABS Lymphocytes 0.7 10^3/ul (1.0-4.8); ABS Monocytes 0.6 10^3/ul (0-0.8); ABS Neutrophils 5.3 10^3/ul (1.5-7.7); ABS Nucleated RBC 0 10^3/ul; Eosinophil % 4.7 % (0-6); Hematocrit 27 % (35-47); Hemoglobin 9.4 g/dl (12.0-16.0); Lymphocyte % 9.9 % (25-47); Mean Corpuscular HGB Conc 35 g/dl (31-36); Mean Corpuscular Hemoglobin 32 pg (27-31); Mean Corpuscular Volume 90 fL (80-97); Mean Platelet Volume 8 um3 (7.4-10.4); Nucleated Red Blood Cells % 0; Platelet Count 192 10^3/ul (150-450); Red Blood Count 2.97 10^6/ul (4.0-5.4); Red Cell Distribution Width 14 % (10.5-15); White Blood Count 6.9 10^3/ul (3.5-10.8)
[2017-11-18 07:17] LABS: EGFR Non-African American 49.2 (>60)
[2017-11-18] MEDS: Mometasone/Formoter 100/5 MDI INH SCH ×2 (07:29→20:23)
[2017-11-18] MEDS: Insulin GLARGINE(*) 1 UNITS UNIT SUBCUT SCH ×2 (09:21→21:39)
[2017-11-18] MEDS: amLODIPine TAB* 5 MG PO SCH (09:22)
[2017-11-18] MEDS: Insulin LISPRO* 1 UNITS UNIT SUBCUT SCH ×4 (09:22→21:40)
[2017-11-18] MEDS: guaiFENesin ER TAB 600 MG PO SCH ×2 (09:22→21:39)
[2017-11-18] MEDS: metroNIDAZOLE TAB* 250 MG PO SCH (09:22)
[2017-11-18] MEDS: Losartan TAB* 25 MG PO SCH (09:23)
[2017-11-18] MEDS: Clopidogrel TAB* 75 MG PO SCH (09:24)
--- NOTE | 2017-11-18 11:33 | PRO ---
CC: Dr. Jose Sanchez PROCEDURE REPORT: DATE OF PROCEDURE: 11/17/17 PROCEDURE: Colonoscopy with snare polypectomy, submucosal saline injection, and biopsy. ATTENDING PHYSICIAN: Jose Sanchez MD ASSISTANTS: Terri Williamson RN and Marcy Garcia, vibration technician. ANESTHESIA TYPE: Moderate sedation. ASA II, Mallampati score III. MEDICATIONS: 1. Fentanyl 75 mcg intravenously. 2. Midazolam 3 mg intravenously. SEDATION TIME: 28 minutes. COLON WITHDRAWAL TIME: 16 minutes. INDICATIONS: A 67-year-old lady with complaint of intermittent nausea, vomiting , abdominal discomfort, and nonbloody diarrhea. Her CT scan revealed possible inflammation in the colon. Her stool studies were negative for enteric infection, but lactoferrin was positive. She also had leukocytosis which have been improving. DESCRIPTION OF PROCEDURE: After explaining the risks, benefits, alternatives, as well as complications of the procedure, written consent was obtained from the patient. With the patient in the left lateral decubitus position, medications were administered in small increments. Vitals were monitored throughout the procedure. Digital rectal examination was performed, which was unremarkable. Colonoscope was inserted into the rectum and navigated through the colon all the way up to the cecum as well as terminal ileum. Mucosa was examined both on insertion and withdrawal. Retroflexion was performed in the distal rectum. Findings were given as below. The patient tolerated the procedure well and was sent to recovery area in stable condition. FINDINGS: 1. There was a 12-mm sessile polyp in the cecal base. The polyp was injected with submucosal saline injection with reasonable lift and then removed completely in piecemeal fashion. 2. There was 10-mm polyp in the ascending colon, removed completely with hot snare. 3. There were multiple nonbleeding diverticula in the sigmoid and descending colon. 4. Nonbleeding external hemorrhoids found upon retroflexion and distal rectum. 5. Mucosa in the terminal ileum was normal. 6. Random biopsies were taken from the right, left colon and rectum to rule out microscopic colitis. IMMEDIATE COMPLICATIONS: None. BLOOD LOSS: Minimal. IMPRESSION: 1. A large flat cecal polyp removed with submucosal saline injection and hot snare in piecemeal fashion. 2. Large flat ascending colon polyp removed with hot snare. 3. Nonbleeding diverticula in the left colon. 4. Nonbleeding external hemorrhoids. 5. Random colorectal biopsies taken to rule out microscopic colitis. RECOMMENDATIONS: 1. Return the patient to the hospital [facility] for ongoing care. 2. Check pathology results. 3. Advance diet as tolerated. 4. Further recommendations to follow. [id number]/[facility] #: [id number] [facility]
[2017-11-18] MEDS ORDERED: Albuterol 2.5 MG/3 ML NEB.SOL* (0.083%) INH PRN (12:20)
[2017-11-18] MEDS: Furosemide IV* 10 MG/ML 2 ML VIAL (20 MG) IV SLOW PU ONE ×2 (12:53→15:34)
[2017-11-18] MEDS: Ondansetron INJ* 2 MG/ML VIAL IV PRN (15:41)
--- NOTE | 2017-11-18 16:13 | ECHO ---
Patient: ERVIN MELENDEZ [facility] Rec#: [id number] : 1950 Date: 11/18/2017 Age: 67y Height: 154.9 cm / 61.0 in Weight: 97.5 kg / 214.9 lbs Sex: F BSA: 2 Room#: [facility] Admit Date#: 11/18/2017 Referring: Tae Tony Reading: Chente Hunter MD Forklift Driver: Meghan Molina RN RDCS Transthoracic Echocardiogram Indication: Abnormal EKG BP: 98/37 HR: 68 Rhythm: NSR Findings History: HTN, DM, HLD, obesity Technical Comments: The study quality is fair. The study is technically limited due to patient body habitus. Completed at 1600. Left Ventricle: The left ventricular chamber size is normal. Mild concentric left ventricular hypertrophy is observed. Global left ventricular wall motion and contractility are within normal limits. There is normal left ventricular systolic function. The estimated ejection fraction is 60-65%. Abnormal left ventricular diastolic function is observed. Abnormal left ventricular diastolic filling is observed, consistent with impaired relaxation. Left Atrium: The left atrium is mildly dilated. Right Ventricle: The right ventricular chamber size and systolic function are within normal limits. Right Atrium: The right atrium is mildly dilated. Aortic Valve: The aortic valve is trileaflet. The aortic valve leaflets are mildly thickened. There is no evidence of aortic regurgitation. There is no evidence of aortic stenosis. Mitral Valve: The mitral valve leaflets are mildly thickened. There is mild to moderate mitral regurgitation. There is no evidence of mitral stenosis. Tricuspid Valve: The tricuspid valve leaflets are normal. There is mild tricuspid regurgitation. There is evidence of mild pulmonary hypertension. There is no tricuspid stenosis. Pulmonic Valve: The pulmonic valve appears normal. There is no evidence of pulmonic regurgitation. There is no pulmonic stenosis. Pericardium: A trivial pericardial effusion is visualized. A pericardial fat pad is visualized. Aorta: There is no dilatation of the ascending aorta. There is no dilatation of the aortic arch. There is no dilation of the aortic root. Pulmonary Artery: The main pulmonary artery appears normal. Venous: The venous system is not well visualized. The inferior vena cava is not visualized. Summary: There was not any prior study for comparison. Conclusions Mild concentric left ventricular hypertrophy is observed. There is normal left ventricular systolic function. Abnormal left ventricular diastolic filling is observed, consistent with impaired relaxation. The left atrium is mildly dilated. The right atrium is mildly dilated. The aortic valve leaflets are mildly thickened. There is mild to moderate mitral regurgitation. There is mild tricuspid regurgitation. There is evidence of mild pulmonary hypertension. Measurements Name Value Normal Range RVIDd (AP) 2D 2.7 cm (0.9 - 2.6) RVDdMajor (2D) 2.8 cm (2.2 - 4.4) RAd ISD 4CH 5.2 cm (3.4 - 4.9) RA (A4C)W 3.9 cm (2.9 - 4.6) IVSd (2D) 1.2 cm (0.6 - 1) LVPWd (2D) 1.2 cm (0.6 - 1) LVIDd (2D) 4.5 cm (3.6 - 5.4) LVIDs (2D) 3.3 cm - LV FS (2D) 27 % (25 - 45) Aortic Annulus 2 cm (1.4 - 2.6) Ao root diameter (2D) 2.5 cm (2.1 - 3.5) Ascending Ao 2.9 cm (2.1 - 3.4) Aortic arch 2.2 cm (1.8 - 3.4) LA dimension (AP) 2D 4.1 cm (2.3 - 3.8) LAd ISD 4CH 5.8 cm (2.9 - 5.3) LA ISD 4CH W 4.6 cm (2.5 - 4.5) Name Value Normal Range LA ESV SP 4CH (A/L) 71 ml - LA ESV SP 2CH (A/L) 67 ml - LA ESV BP (A/L) 72 ml - LA ESV BP (A/L) index 37 ml/m2 - LA ESV SP 4CH (MOD) 64 ml - LA ESV SP 2CH (MOD) 64 ml - Name Value Normal Range MV E-wave Vmax 1.2 m/sec - MV deceleration time 188 msec - MV A-wave Vmax 0.75 m/sec - MV E:A ratio 1.6 ratio - LV septal e' Vmax 0.09 m/sec - LV lateral e' Vmax 0.07 m/sec - LV E:e' septal ratio 13.3 ratio - LV E:e' lateral ratio 17.1 ratio - Name Value Normal Range AV Vmax 1.6 m/sec - AV VTI 37 cm - AV peak gradient 10 mmHg - AV mean gradient 5.4 mmHg - LVOT Vmax 1.4 m/sec - LVOT VTI 31.1 cm - LVOT peak gradient 7.7 mmHg - LVOT mean gradient 4.3 mmHg - TRINA Vmax 1.1 m/sec - Name Value Normal Range TR Vmax 3.1 m/sec - TR peak gradient 38 mmHg - RAP 8 mmHg - RVSP 46 mmHg - Name Value Normal Range PV Vmax 1.1 m/sec -
--- NOTE | 2017-11-18 16:28 | PN ---
Progress Note - Progress Note Date of Service: 11/18/17 SOAP: Subjective: [No c/o abdominal pain, diarrhea of hematochezia. Still c/o shaking chills but has been afebrile for 48 hrs. Colonoscopy (11/17/2017) showed two large sessile polyps in cecum & ascending colon (removed with snare), left sided diverticulosis, hemorrhoids. Otherwise normal mucosa. Random biopsies taken.] Labs: Leukocytosis resolved Stools: Negative C. difficile toxin but (+) lactoferrin Objective: [Abdomen: Obese but soft, non-tender] Assessment: 67 year old lady with c/o nausea, vomiting & diarrhea. Diarrhea has resolved. Colonoscopy was inconclusive. Still c/o shaking chills, etiology unclear. Recommendations: 1. Advance diet as tolerated. 2. Check pathology results. 3. No further GI work up needed. ]
--- NOTE | 2017-11-18 17:11 | RAD ---
CLINICAL HISTORY: Abdominal pain COMPARISON: April 24, 2015 TECHNIQUE: Multiple contiguous axial CT scans were obtained of the abdomen and pelvis, without intravenous contrast enhancement. Coronal and sagittal multiplanar reformations are submitted for review. Oral contrast was administered. FINDINGS: The study is limited by the lack of intravenous contrast. This limits evaluation of the solid organs and vasculature. LUNG BASES: There are small bilateral pleural effusions. LIVER: The liver is mildly enlarged measuring 19.7 cm in long axis. BILE DUCTS: There is no intrahepatic or extrahepatic biliary dilatation. GALLBLADDER: The gallbladder is not visualized. Surgical clips are noted in the gallbladder fossa. PANCREAS: The pancreas is normal, without mass or ductal dilatation. SPLEEN: Normal in size and appearance. UPPER GI TRACT: Evaluation of the gastrointestinal tract is limited by incomplete gastric distention. The upper GI tract is unremarkable. SMALL BOWEL AND MESENTERY: The small bowel is normal in contour, course, and caliber. There is no obstruction or dilatation. COLON: There are multiple diverticula of the descending colon. There is no pericolonic inflammatory change. There is mucosal thickening of the rectal mucosa and anus. ADRENALS: Normal bilaterally. KIDNEYS: The kidneys are normal in shape, size, contour, and axis. There is no hydronephrosis or nephrolithiasis. BLADDER: The bladder is smooth in contour. PELVIC ORGANS: The uterus and adnexa are grossly normal for technique. AORTA: The aorta is normal. IVC: Unremarkable LYMPH NODES: There is no lymphadenopathy by size criteria. ABDOMINAL WALL: There is no evidence for abdominal wall hernia. BONES AND SOFT TISSUES: Degenerative changes are noted. The patient is status post multilevel laminectomy. OTHER: There is a small amount of perihepatic and perisplenic ascites. IMPRESSION: 1. HEPATOMEGALY. 2. SMALL AMOUNT OF ASCITES. 3. SMALL BILATERAL PLEURAL EFFUSIONS. 4. STATUS POST MASTECTOMY. 5. DIVERTICULOSIS. 6. THERE IS MUCOSAL THICKENING OF THE RECTAL MUCOSA EXTENDING TO THE ANUS. THE DIFFERENTIAL INCLUDES NEOPLASM. RECOMMEND CORRELATION WITH DIRECT VISUALIZATION
--- NOTE | 2017-11-18 20:41 | PN ---
Subjective Date of Service: 11/18/17 Interval History: Patient had an episode of SOB without hypoxia overnight which resolved after discontinuation of her fluids. Patient denies other complaints including N/V/D, CP, SOB, Abdominal pain, Dysuria, F/C, or other pain. Patient had an episode of symptomatic hypoglycemia in the afternoon which resolved with juice. Family History: Unchanged from Admission Social History: Unchanged from Admission Past Medical History: Unchanged from Admission Objective Active Medications: Acetaminophen (Tylenol Tab*) 650 mg PO Q6H PRN PRN Reason: FEVER/PAIN Last Admin: 11/16/17 16:10 Dose: 650 mg Albuterol (Ventolin 2.5 Mg/3 Ml Neb.Alma*) 2.5 mg INH Q4H PRN PRN Reason: SOB/WHEEZING Amlodipine Besylate (Norvasc Tab*) 10 mg PO DAILY [facility] Last Admin: 11/18/17 09:22 Dose: 10 mg Clopidogrel Bisulfate (Plavix Tab*) 75 mg PO DAILY [facility] Last Admin: 11/18/17 09:24 Dose: 75 mg Dextrose (D50w Syringe 50 Ml*) 12.5 gm IV PUSH .FOR FS < 60 - SS PRN PRN Reason: FS < 60 Enoxaparin Sodium (Lovenox(*)) 40 mg SUBCUT Q24H [facility] Last Admin: 11/18/17 01:49 Dose: 40 mg Guaifenesin (Mucinex*) 600 mg PO BID [facility] Last Admin: 11/18/17 09:22 Dose: 600 mg Insulin Glargine (Lantus(*)) 30 units SUBCUT BID [facility] Insulin Human Lispro (Humalog*) 0 units SUBCUT ACHS [facility] PRN Reason: Protocol Last Admin: 11/18/17 17:01 Dose: Not Given Losartan Potassium (Cozaar Tab*) 100 mg PO DAILY [facility] Last Admin: 11/18/17 09:23 Dose: 100 mg Mometasone Furoate/Formoterol Fumar (Dulera 100/5 Mdi*) 2 puff INH BID [facility] Last Admin: 11/18/17 20:23 Dose: 2 puff Ondansetron HCl (Zofran Inj*) 4 mg IV Q6H PRN PRN Reason: NAUSEA Last Admin: 11/18/17 15:41 Dose: 4 mg Prochlorperazine Edisylate (Compazine Inj*) 5 mg IV Q6H PRN PRN Reason: NAUSEA/VOMITING Vital Signs - 8 hr 11/18/17 15:54 Temperature 98.7 F Pulse Rate 80 Respiratory 22 Rate Blood Pressure 159/44 (mmHg) O2 Sat by Pulse 92 Oximetry Oxygen Devices in Use Now: None Appearance: Patient is a 67yo female who appears stated age and is sitting in the bed in [facility]. Eyes: No Scleral Icterus, PERRLA Ears/Nose/Mouth/Throat: NL Teeth, Lips, Gums, Clear Oropharnyx, Mucous Membranes Moist Neck: NL Appearance and Movements; NL JVP, Trachea Midline, No Thyroid Enlargement, Masses Respiratory: Symmetrical Chest Expansion and Respiratory Effort, Clear to Auscultation Cardiovascular: NL Sounds; No Murmurs; No JVD, RRR, - - 2+ edema in B/L LE, increased from previous exam. Abdominal: No Hepatosplenomegaly, - - Tenderness to deep palpation in RLQ. No rebound, guarding, rovsing's. No other abnormalities. Lymphatic: No Cervical Adenopathy Extremities: No Edema, No Clubbing, Cyanosis Skin: No Rash or Ulcers, No Nodules or Sclerosis Neurological: Alert and Oriented x 3, NL Sensation, NL Muscle Strength and Tone Result Diagrams: 11/18/17 06:31 11/18/17 06:31 Additional Lab and Data: Lab Results Microbiology and Other Data: Microbiology 11/16/17 10:57 Stool Gross Appearance - Final Stool C. difficile DNA Amplification - Final 027 Presumptive NEGATIVE Toxigenic C.diff NEGATIVE Stool Lactoferrin - Final Assess/Plan/Problems-Billing Assessment: Patient is a 67yo female with a [facility] signficant for HTN. HLD, DM II, possible TIA who has been admitted several times at [facility] for episodes of sepsis with abdominal pain, nausea, vomiting and diarrhea without blood. Patient has improved from her Gi symptoms. No obvious cause. Patient has previously had 2 relapses of this unknown condition. - Patient Problems (1) Colitis Current Visit: Yes Status: Acute Code(s): K52.9 - NONINFECTIVE GASTROENTERITIS AND COLITIS, UNSPECIFIED SNOMED Code(s): 41668950 Comment: Appreciate GI input. Mild Colitis of cecum on previous abdominal CT at not evident on colonoscopy. No history of bloody or black diarrhea. Fecal lactoferrin positive. Repeated high fevers and sepsis x2 at [place]. Resolves with antibiotics but then recurs. Stool culture pending. C. diff negative. Stop Cipro/Flagyl. Colonoscopy shows only 2 large polyps. No signs of inflammation. Biopsies taken for microscopic colitis. Will advance diet as tolerated. Repeat CT for new abdominal pain showed lo colitis. Appreciate ID input. Colonic pathogen testing sent. Urine testing for carcinoid syndrome to be collected. Will discuss possible endoscopy for Whipple's disease with GI. (2) Diabetes Current Visit: Yes Status: Acute Code(s): E11.9 - TYPE 2 DIABETES MELLITUS WITHOUT COMPLICATIONS SNOMED Code(s): 65440706 Comment: On 80u detemir BID at home. Decreased to 30u lantus BID in hospital from 40u BID due to hypoglycemia. Hemoglobin A1c is 7.8. Hold metformin during acute illness. Blood sugars well controlled in hospital. Continue SSI and FSBG ACHS. (3) HTN (hypertension) Current Visit: Yes Status: Acute Code(s): I10 - ESSENTIAL (PRIMARY) HYPERTENSION SNOMED Code(s): 89676964 Comment: Normotensive, continue losartan and amlodipine. (4) HLD (hyperlipidemia) Current Visit: Yes Status: Acute Code(s): E78.5 - HYPERLIPIDEMIA, UNSPECIFIED SNOMED Code(s): 94283869 Comment: Hold lipitor for concern of N/V/D. Not likely underlying cause due to positive lactoferrin. Lipid panel shows low LDL and HDL. Will not resume lipitor at this time. Known intracerebral stenosis of proximal portion of MCA. (5) Diarrhea Current Visit: Yes Status: Acute Code(s): R19.7 - DIARRHEA, UNSPECIFIED SNOMED Code(s): 98320144 Comment: Resolved. Was intermittent, without blood. C. diff negative. Stool lactoferrin positive. Stool culture pending. 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 No other exposures to farm animals, spoiled food, sick contacts, or other travel. (6) Nausea Current Visit: Yes Status: Acute Code(s): R11.0 - NAUSEA SNOMED Code(s): 971603768 Comment: Continue Zofran and Compazine PRN. (7) Pulmonary nodules Current Visit: Yes Status: Acute Code(s): R91.8 - OTHER NONSPECIFIC ABNORMAL FINDING OF LUNG FIELD SNOMED Code(s): 687333973 Comment: Several Small pulmonary nodules on CT at [place]. Needs F/U in 6 months. Should follow with pulmonology as scheduled. (8) Diastolic CHF Current Visit: Yes Status: Acute Code(s): I50.30 - UNSPECIFIED DIASTOLIC ( CONGESTIVE) HEART FAILURE SNOMED Code(s): 674889310 Comment: Fluid overload overnight. Leg swelling at admission. Echo shows normal EF and Diastolic dysfunction. Lasix x1 given with good effect. Strict I+O and Daily weights. (9) Obstructive airway disease Current Visit: Yes Status: Acute Code(s): J44.9 - CHRONIC OBSTRUCTIVE PULMONARY DISEASE, UNSPECIFIED SNOMED Code(s): 63002896 Comment: Patient has obstructive airway disease of unknown classification. Continue Dulera and PRN albuterol. (10) DVT prophylaxis Current Visit: Yes Status: Acute Code(s): XDI4695 - SNOMED Code(s): 081005578 Comment: Shantellenox (11) Full code status Current Visit: Yes Status: Acute Code(s): Z78.9 - OTHER SPECIFIED HEALTH STATUS SNOMED Code(s): 728538569 Status and Disposition: Admitted inpatient.
[2017-11-18] MEDS ORDERED: Ciprofloxacin TAB* 500 MG PO SCH (21:00)
[2017-11-19] MEDS: Enoxaparin(*) 40 MG/0.4 ML SYR SUBCUT SCH (00:02)
--- NOTE | 2017-11-19 05:01 | CONS ---
CONSULTATION REPORT: DATE OF CONSULTATION: 11/18/17 REQUESTING PROVIDER: DENZEL Méndez. CONSULTING SERVICE: Infectious Disease. REASON FOR CONSULTATION: Recurrent diarrhea and vomiting. IMPRESSION: 1. Third episode now of explosive diarrhea with some vomiting, jittery sensation, malaise, couple of times sensation of flushing or extreme skin warmth. She has had stool studies done at [facility] that were negative. She had a colonoscopy here that showed normal mucosa and a couple of polyps. C. diff PCR here was negative. Blood cultures are negative and influenza PCR negative. Stool culture is pending. I think it is unlikely to be infectious etiology here, she has been on Cipro and Flagyl for 2 weeks without resolution and despite feeling very ill she has not gotten particularly sick with all this. Other considerations include Whipple's disease, but no other central nervous or cardiac manifestations we know of, carcinoid syndrome of the flushing stories a little bit weak she does feel like she gets very warm and read from time to time when this happens. 2. Obesity. 3. PENICILLIN allergy. 4. Diabetes. RECOMMENDATION: Stop Cipro and Flagyl. We will check stool pathogen panel PCR and 24 hour urine for 5-HIAA. HISTORY OF PRESENT ILLNESS: This is a 67-year-old woman with obesity and diabetes admitted with diarrhea and vomiting this first developed about 2 weeks ago associated with jitteriness feeling unwell. She was in [facility] where she had fluids and IV antibiotics, stool studies were negative. Scan of abdomen and pelvis was unremarkable. She was discharged and had soft stools, initially had had explosive stools with urgency and then more soft stools after discharge but then her vomiting without abdominal pain and explosive diarrhea returned so she went back to [facility] similar workup, antibiotics, some improvement, was discharged the end of October 2017 and had a lipase of [address] showed possible colitis. She had a high fever that point an hypertension. She was discharged on 11/13/17 but then began to have nausea, vomiting, and explosive stools without blood or mucus, or much in the way of abdominal pain. She had weakness and flushing sensation. She came to the hospital on the . Her white blood cell count was 24,000. She was given IV fluid, antibiotics were started on the , by then her white cell count down to 11. She had a fever on the afternoon of the and then 7th and they resolved. Her appetite is okay. She had a colonoscopy yesterday, which was unremarkable. Blood cultures negative. Influenza PCR negative. Urine culture negative. C. diff PCR negative. She has no abdominal pain. Her stools are soft today. No vomiting since she got here. PAST MEDICAL HISTORY: 1. Diabetes. 2. Obesity. 3. Hypertension. 4. Hyperlipidemia. 5. Spine surgery. 6. Status post tonsillectomy. 7. Status post cholecystectomy. MEDICATIONS: 1. Tylenol. 2. Albuterol. 3. Amlodipine. 4. Plavix. 5. Lasix. 6. Enoxaparin. 7. Guaifenesin. 8. Insulin glargine. 9. Losartan. 10. Prochlorperazine. ALLERGIES: ASPIRIN, ROBITUSSIN, ERYTHROMYCIN, HYDROCODONE, PENICILLIN, CAPTOPRIL. FAMILY HISTORY: No tuberculosis or recurrent infections. SOCIAL HISTORY: She lives in [place] with her sister. She has no sick contacts. She grew up in [place]. She has not traveled out of the country . She has now no pets. 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 REVIEW OF SYSTEMS: A 14-point review of systems was negative except as noted above. PHYSICAL EXAM: Vital Signs: Temperature 37, heart rate 80 respiratory rate 20 , blood pressure 160/44, O2 saturation 92% on room air. In general, she is awake, not in distress. Neurologic: She is oriented x3, follows all commands. HEENT: There is no conjunctival hemorrhage. Oropharynx without lesions. Neck : Supple without mass. Lymph Nodes: There is no inguinal, axillary, or epitrochlear lymphadenopathy. Heart is regular rate and rhythm without murmurs, rubs or gallops. Lungs: Clear to auscultation bilaterally. Abdomen: Soft, nontender, nondistended. Bowel sounds present. Skin: There is no rash or splinter hemorrhages. Musculoskeletal: There is no spine tenderness to palpation. DIAGNOSTIC STUDIES/LAB DATA: White blood cell count 7, hemoglobin 9, platelets 192, creatinine 1.1. CRP was 33. Please see impression and recommendations as outlined above Thank you for asking me to see Ms. Cano in consultation. [id number]/[facility] #: [id number] [facility]
[2017-11-19 07:32] LABS: ABS Basophils 0 10^3/ul (0-0.2); ABS Eosinophils 0.3 10^3/ul (0-0.6); ABS Monocytes 0.5 10^3/ul (0-0.8); ABS Nucleated RBC 0 10^3/ul; Eosinophil % 4.5 % (0-6); Hematocrit 29 % (35-47); Hemoglobin 9.8 g/dl (12.0-16.0); Lymphocyte % 16.6 % (25-47); Mean Corpuscular HGB Conc 34 g/dl (31-36); Mean Corpuscular Hemoglobin 31 pg (27-31); Mean Corpuscular Volume 90 fL (80-97); Mean Platelet Volume 8 um3 (7.4-10.4); Nucleated Red Blood Cells % 0; Platelet Count 210 10^3/ul (150-450); Red Blood Count 3.21 10^6/ul (4.0-5.4); Red Cell Distribution Width 14 % (10.5-15); White Blood Count 5.8 10^3/ul (3.5-10.8)
[2017-11-19 07:45] LABS: EGFR Non-African American 57.6 (>60)
[2017-11-19] MEDS: Mometasone/Formoter 100/5 MDI INH SCH ×2 (08:50→21:21)
[2017-11-19] MEDS: Losartan TAB* 25 MG PO SCH (09:27)
[2017-11-19] MEDS: amLODIPine TAB* 5 MG PO SCH (09:28)
[2017-11-19] MEDS: Clopidogrel TAB* 75 MG PO SCH (09:28)
[2017-11-19] MEDS: guaiFENesin ER TAB 600 MG PO SCH ×2 (09:28→21:22)
[2017-11-19] MEDS: Insulin GLARGINE(*) 1 UNITS UNIT SUBCUT SCH (09:29)
[2017-11-19] MEDS: Insulin LISPRO* 1 UNITS UNIT SUBCUT SCH ×4 (09:38→21:51)
--- NOTE | 2017-11-19 15:13 | PN ---
Subjective Date of Service: 11/19/17 Interval History: Patient seen and examined. Watery diarrhea again today right after breakfast with associated bloating and nausea, no vomiting. No changes in symptoms. Denies fever or chills, no headache or fatigue. Family History: Unchanged from Admission Social History: Unchanged from Admission Past Medical History: Unchanged from Admission Objective Active Medications: Acetaminophen (Tylenol Tab*) 650 mg PO Q6H PRN PRN Reason: FEVER/PAIN Last Admin: 11/16/17 16:10 Dose: 650 mg Albuterol (Ventolin 2.5 Mg/3 Ml Neb.Alma*) 2.5 mg INH Q4H PRN PRN Reason: SOB/WHEEZING Amlodipine Besylate (Norvasc Tab*) 10 mg PO DAILY [facility] Last Admin: 11/19/17 09:28 Dose: 10 mg Clopidogrel Bisulfate (Plavix Tab*) 75 mg PO DAILY [facility] Last Admin: 11/19/17 09:28 Dose: 75 mg Dextrose (D50w Syringe 50 Ml*) 12.5 gm IV PUSH .FOR FS < 60 - SS PRN PRN Reason: FS < 60 Guaifenesin (Mucinex*) 600 mg PO BID [facility] Last Admin: 11/19/17 09:28 Dose: 600 mg Insulin Glargine (Lantus(*)) 30 units SUBCUT BID [facility] Last Admin: 11/19/17 09:29 Dose: Not Given Insulin Human Lispro (Humalog*) 0 units SUBCUT ACHS [facility] PRN Reason: Protocol Last Admin: 11/19/17 12:42 Dose: 3 unit Losartan Potassium (Cozaar Tab*) 100 mg PO DAILY [facility] Last Admin: 11/19/17 09:27 Dose: 100 mg Mometasone Furoate/Formoterol Fumar (Dulera 100/5 Mdi*) 2 puff INH BID [facility] Last Admin: 11/19/17 08:50 Dose: 2 puff Ondansetron HCl (Zofran Inj*) 4 mg IV Q6H PRN PRN Reason: NAUSEA Last Admin: 11/18/17 15:41 Dose: 4 mg Prochlorperazine Edisylate (Compazine Inj*) 5 mg IV Q6H PRN PRN Reason: NAUSEA/VOMITING Rifaximin (Xifaxan*) 550 mg PO TID PRASANNA Stop: 12/03/17 09:01 Vital Signs - 8 hr 11/19/17 11/19/17 11/19/17 08:00 08:45 08:50 Temperature 97.1 F Pulse Rate 67 80 Respiratory 18 18 Rate Blood Pressure 149/41 (mmHg) O2 Sat by Pulse 94 94 Oximetry 11/19/17 11:30 Temperature 98.0 F Pulse Rate 66 Respiratory 16 Rate Blood Pressure 128/44 (mmHg) O2 Sat by Pulse 97 Oximetry Oxygen Devices in Use Now: None Appearance: Alert, well appearing, no distress Ears/Nose/Mouth/Throat: Clear Oropharnyx, Mucous Membranes Moist Neck: Trachea Midline Respiratory: Symmetrical Chest Expansion and Respiratory Effort, Clear to Auscultation Cardiovascular: NL Sounds; No Murmurs; No JVD, RRR Abdominal: NL Sounds; No Tenderness; No Distention Neurological: Alert and Oriented x 3, NL Gait, NL Muscle Strength and Tone Nutrition: Taking PO's Result Diagrams: 11/19/17 07:13 11/19/17 07:14 Additional Lab and Data: Lab Results Microbiology and Other Data: Microbiology 11/16/17 10:57 Stool Gross Appearance - Final Stool C. difficile DNA Amplification - Final 027 Presumptive NEGATIVE Toxigenic C.diff NEGATIVE Stool Lactoferrin - Final Microbiology 11/16/17 10:57 Stool Stool Culture - Final 11/16/17 10:57 Stool Shiga Toxin I & II - Final 11/16/17 07:40 Blood Venous Aerobic Blood Culture - Preliminary No Growth Day 3 11/16/17 07:40 Blood Venous Anaerobic Blood Culture - Preliminary No Growth Day 3 11/19/17 01:11 Stool Stool Gross Appearance - Final 11/15/17 22:45 Blood Venous Aerobic Blood Culture - Preliminary No Growth Day 3 11/15/17 22:45 Blood Venous Anaerobic Blood Culture - Preliminary No Growth Day 3 11/16/17 05:25 Urine Urine Culture - Final No Growth (<1,000 CFU/mL) 11/16/17 10:57 Stool Stool Gross Appearance - Final 11/16/17 10:57 Stool C. difficile DNA Amplification - Final 027 Presumptive NEGATIVE Toxigenic C.diff NEGATIVE 11/16/17 10:57 Stool Stool Lactoferrin - Final 11/15/17 18:10 Nasopharyngeal Influenza Types A,B Antigen (MALGORZATA) - Final Specimen received for Influenza A/B Molecular testing ERVIN MELENDEZ [id number] Page: 1 of 2 Patient Name: ERVIN MELENDEZ Pathology Number: [id number] Med.Rec. #: [id number] Collection Date: 11/17/17 Acct. Number#: [id number] Received Date: 11/17/17 : 1950 Location: [facility] Gender: F Status: [facility] Submitting Physician: Jose Sanchez MD Other Physician: Jonas Baires MD FINAL DIAGNOSIS 1. Colon, cecum, biopsy: -- Sessile serrated adenoma. -- No high grade dysplasia or malignancy. 2. Colon, right, biopsy: -- Benign colonic mucosa with no significant pathologic abnormalities. -- No evidence of microscopic colitis. 3. Colon, ascending, biopsy: -- Hyperplastic polyp. 4. Colon, left, biopsy: -- Benign colonic mucosa with no significant pathologic abnormalities. -- No evidence of microscopic colitis. 5. Colon, rectum, biopsy: -- Benign colonic mucosa with no significant pathologic abnormalities. -- No evidence of microscopic colitis. Diagnostic Imaging: Patient Name: ERVIN MELENDEZ Medical Record#: [id number] Ordering Physician: Tae MAHONEY Acct.#: [id number] : 1950 Age: 67 Sex: F Location: [address] [place] [address] MEDICAL Exam Date: 11/18/17 1212 ADM Status: ADM IN Order Information: CT ABD/PEL W/O Accession Number: [id number] CPT: 69838 CLINICAL HISTORY: Abdominal pain COMPARISON: April 24, 2015 TECHNIQUE: Multiple contiguous axial CT scans were obtained of the abdomen and pelvis, without intravenous contrast enhancement. Coronal and sagittal multiplanar reformations are submitted for review. Oral contrast was administered. FINDINGS: The study is limited by the lack of intravenous contrast. This limits evaluation of the solid organs and vasculature. LUNG BASES: There are small bilateral pleural effusions. LIVER: The liver is mildly enlarged measuring 19.7 cm in long axis. BILE DUCTS: There is no intrahepatic or extrahepatic biliary dilatation. GALLBLADDER: The gallbladder is not visualized. Surgical clips are noted in the gallbladder fossa. PANCREAS: The pancreas is normal, without mass or ductal dilatation. SPLEEN: Normal in size and appearance. UPPER GI TRACT: Evaluation of the gastrointestinal tract is limited by incomplete gastric distention. The upper GI tract is unremarkable. SMALL BOWEL AND MESENTERY: The small bowel is normal in contour, course, and caliber. There is no obstruction or dilatation. COLON: There are multiple diverticula of the descending colon. There is no pericolonic inflammatory change. There is mucosal thickening of the rectal mucosa and anus. ADRENALS: Normal bilaterally. KIDNEYS: The kidneys are normal in shape, size, contour, and axis. There is no hydronephrosis or nephrolithiasis. BLADDER: The bladder is smooth in contour. PELVIC ORGANS: The uterus and adnexa are grossly normal for technique. AORTA: The aorta is normal. IVC: Unremarkable LYMPH NODES: There is no lymphadenopathy by size criteria. ABDOMINAL WALL: There is no evidence for abdominal wall hernia. BONES AND SOFT TISSUES: Degenerative changes are noted. The patient is status post multilevel laminectomy. OTHER: There is a small amount of perihepatic and perisplenic ascites. IMPRESSION: 1. HEPATOMEGALY. 2. SMALL AMOUNT OF ASCITES. 3. SMALL BILATERAL PLEURAL EFFUSIONS. 4. STATUS POST MASTECTOMY. 5. DIVERTICULOSIS. 6. THERE IS MUCOSAL THICKENING OF THE RECTAL MUCOSA EXTENDING TO THE ANUS. THE DIFFERENTIAL INCLUDES NEOPLASM. RECOMMEND CORRELATION WITH DIRECT VISUALIZATION 1 of 2 Assess/Plan/Problems-Billing Assessment: This is a 67 year old female patient with PMHx significant for HTN, HLP, DMII, TIA and recent pancreatitis that has had several inconclusive admissions for abdominal pain, n/v/d that has no clear etiology and is still persistent. - Patient Problems (1) Diarrhea Code(s): R19.7 - DIARRHEA, UNSPECIFIED SNOMED Code(s): 28694242 Comment: - GI and ID following - No clear infectious agent or etiology - Colonoscopy biopsies as above - C. diff negative. Stool lactoferrin positive but no IBD on colonoscopy. Stool culture negative. Heme negative - Concern that recent pancreatitis is playing a role in this? 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 (4) Diabetes Code(s): E11.9 - TYPE 2 DIABETES MELLITUS WITHOUT COMPLICATIONS SNOMED Code(s) : 57980970 Comment: - Hypoglycemia likely r/t poor PO intake - Continue to hold metformin - Lispro SSI only , DC long acting lantus for now (5) Obstructive airway disease Code(s): J44.9 - CHRONIC OBSTRUCTIVE PULMONARY DISEASE, UNSPECIFIED SNOMED Code(s): 11481162 Comment: - COPD vs asthma? - Maintained on Dulera with PRN albuterol (6) DVT prophylaxis Code(s): HZI8437 - SNOMED Code(s): 607112385 Comment: - Ambulatory, DC lovenox - SCDs while in bed (7) Full code status Current Visit: Yes Status: Acute Code(s): Z78.9 - OTHER SPECIFIED HEALTH STATUS SNOMED Code(s): 353459625 (8) History of TIA (transient ischemic attack) Comment: - On plavix Status and Disposition: Remain inpatient. Counseling and/or Coordination of Care Minutes: Coordinated with staff, patient and Dr. Sepulveda
[2017-11-19] MEDS ORDERED: Potassium Chlor TAB* 20 MEQ TAB.ER PO ONE (15:25)
[2017-11-19] MEDS: RiFAXimin* 550 MG TAB PO SCH ×2 (15:52→21:22)
[2017-11-19] MEDS: Pancrelipase CAP* 5,000 UNITS CAP PO SCH (18:11)
[2017-11-20] MEDS: Insulin LISPRO* 1 UNITS UNIT SUBCUT SCH ×4 (08:00→22:01)
[2017-11-20] MEDS: Mometasone/Formoter 100/5 MDI INH SCH ×2 (08:06→20:24)
[2017-11-20] MEDS: RiFAXimin* 550 MG TAB PO SCH ×3 (08:10→22:03)
[2017-11-20] MEDS: Pancrelipase CAP* 5,000 UNITS CAP PO SCH ×3 (08:10→16:54)
[2017-11-20] MEDS: Losartan TAB* 25 MG PO SCH (08:10)
[2017-11-20] MEDS: guaiFENesin ER TAB 600 MG PO SCH ×2 (08:11→22:03)
[2017-11-20] MEDS: amLODIPine TAB* 5 MG PO SCH (08:11)
[2017-11-20] MEDS: Clopidogrel TAB* 75 MG PO SCH (08:11)
[2017-11-20] MEDS ORDERED: Furosemide IV* 10 MG/ML 2 ML VIAL (20 MG) IV ONE (13:28)
--- NOTE | 2017-11-20 14:23 | RAD ---
Indication: Cough, shortness of breath on exertion. Hypertension. Comparison: November 18, [address] Technique: Upright AP 1400 hours Report: Cardiomegaly. Prominent ill-defined central pulmonary vasculature and mild perihilar opacities. Diffuse prominence of interstitial markings. Small bilateral dependent pleural effusions with proportional atelectasis. IMPRESSION: Pulmonary vascular congestion and interstitial edema with associated small bilateral pleural effusions.
--- NOTE | 2017-11-20 14:28 | PN ---
Subjective Date of Service: 11/20/17 Interval History: Patient seen and examined. Decreased diarrhea overnight. 3 bms, more formed per patient, also states she is urinating a lot. Concerned about edema of the ankles today and mild SOB with exertion. Denies fevers or chills, states she feels tremulous at times, however. No n/v, tolerating PO. Family History: Unchanged from Admission Social History: Unchanged from Admission Past Medical History: Unchanged from Admission Objective Active Medications: Acetaminophen (Tylenol Tab*) 650 mg PO Q6H PRN PRN Reason: FEVER/PAIN Last Admin: 11/16/17 16:10 Dose: 650 mg Albuterol (Ventolin 2.5 Mg/3 Ml Neb.Alma*) 2.5 mg INH Q4H PRN PRN Reason: SOB/WHEEZING Amlodipine Besylate (Norvasc Tab*) 10 mg PO DAILY [facility] Last Admin: 11/20/17 08:11 Dose: 10 mg Clopidogrel Bisulfate (Plavix Tab*) 75 mg PO DAILY [facility] Last Admin: 11/20/17 08:11 Dose: 75 mg Dextrose (D50w Syringe 50 Ml*) 12.5 gm IV PUSH .FOR FS < 60 - SS PRN PRN Reason: FS < 60 Guaifenesin (Mucinex*) 600 mg PO BID [facility] Last Admin: 11/20/17 08:11 Dose: 600 mg Insulin Human Lispro (Humalog*) 0 units SUBCUT ACHS [facility] PRN Reason: Protocol Last Admin: 11/20/17 13:40 Dose: 9 unit Losartan Potassium (Cozaar Tab*) 100 mg PO DAILY [facility] Last Admin: 11/20/17 08:10 Dose: 100 mg Mometasone Furoate/Formoterol Fumar (Dulera 100/5 Mdi*) 2 puff INH BID [facility] Last Admin: 11/20/17 08:06 Dose: 2 puff Ondansetron HCl (Zofran Inj*) 4 mg IV Q6H PRN PRN Reason: NAUSEA Last Admin: 11/18/17 15:41 Dose: 4 mg Pancrelipase (Zenpep Delayed Cap*) 5,000 units PO TID WITH MEALS [facility] Last Admin: 11/20/17 13:39 Dose: 5,000 units Prochlorperazine Edisylate (Compazine Inj*) 5 mg IV Q6H PRN PRN Reason: NAUSEA/VOMITING Rifaximin (Xifaxan*) 550 mg PO TID PRASANNA Stop: 12/03/17 09:01 Last Admin: 11/20/17 13:39 Dose: 550 mg Vital Signs - 8 hr 11/20/17 11/20/17 08:00 08:05 Temperature 97.2 F Pulse Rate 80 Respiratory 96 18 Rate Blood Pressure 147/48 (mmHg) O2 Sat by Pulse 96 96 Oximetry Oxygen Devices in Use Now: None Appearance: Alert, NAD Ears/Nose/Mouth/Throat: Mucous Membranes Moist Neck: Trachea Midline Respiratory: Symmetrical Chest Expansion and Respiratory Effort - crackles bilateral bases Cardiovascular: NL Sounds; No Murmurs; No JVD, RRR Extremities: - - bipedal edema, 2+ Neurological: Alert and Oriented x 3 Nutrition: Taking PO's Result Diagrams: 11/19/17 07:13 11/19/17 07:14 Additional Lab and Data: Lab Results Microbiology and Other Data: Microbiology 11/16/17 10:57 Stool Gross Appearance - Final Stool C. difficile DNA Amplification - Final 027 Presumptive NEGATIVE Toxigenic C.diff NEGATIVE Stool Lactoferrin - Final Microbiology 11/16/17 10:57 Stool Stool Culture - Final 11/16/17 10:57 Stool Shiga Toxin I & II - Final 11/16/17 07:40 Blood Venous Aerobic Blood Culture - Preliminary No Growth Day 3 11/16/17 07:40 Blood Venous Anaerobic Blood Culture - Preliminary No Growth Day 3 11/19/17 01:11 Stool Stool Gross Appearance - Final 11/15/17 22:45 Blood Venous Aerobic Blood Culture - Preliminary No Growth Day 3 11/15/17 22:45 Blood Venous Anaerobic Blood Culture - Preliminary No Growth Day 3 11/16/17 05:25 Urine Urine Culture - Final No Growth (<1,000 CFU/mL) 11/16/17 10:57 Stool Stool Gross Appearance - Final 11/16/17 10:57 Stool C. difficile DNA Amplification - Final 027 Presumptive NEGATIVE Toxigenic C.diff NEGATIVE 11/16/17 10:57 Stool Stool Lactoferrin - Final 11/15/17 18:10 Nasopharyngeal Influenza Types A,B Antigen (MALGORZATA) - Final Specimen received for Influenza A/B Molecular testing ERVIN MELENDEZ [id number] Page: 1 of 2 Patient Name: ERVIN MELENDEZ Pathology Number: [id number] Med.Rec. #: [id number] Collection Date: 11/17/17 Acct. Number#: [id number] Received Date: 11/17/17 : 1950 Location: [facility] Gender: F Status: [facility] Submitting Physician: Jose Sanchez MD Other Physician: Jonas Baires MD FINAL DIAGNOSIS 1. Colon, cecum, biopsy: -- Sessile serrated adenoma. -- No high grade dysplasia or malignancy. 2. Colon, right, biopsy: -- Benign colonic mucosa with no significant pathologic abnormalities. -- No evidence of microscopic colitis. 3. Colon, ascending, biopsy: -- Hyperplastic polyp. 4. Colon, left, biopsy: -- Benign colonic mucosa with no significant pathologic abnormalities. -- No evidence of microscopic colitis. 5. Colon, rectum, biopsy: -- Benign colonic mucosa with no significant pathologic abnormalities. -- No evidence of microscopic colitis. Diagnostic Imaging: Patient Name: ERVIN MELENDEZ Medical Record#: [id number] Ordering Physician: Tae MAHONEY Acct.#: [id number] : 1950 Age: 67 Sex: F Location: [address] [place] [address] - MEDICAL Exam Date: 11/18/17 1212 ADM Status: ADM IN Order Information: CT ABD/PEL W/O Accession Number: [id number] CPT: 89902 CLINICAL HISTORY: Abdominal pain COMPARISON: April 24, 2015 TECHNIQUE: Multiple contiguous axial CT scans were obtained of the abdomen and pelvis, without intravenous contrast enhancement. Coronal and sagittal multiplanar reformations are submitted for review. Oral contrast was administered. FINDINGS: The study is limited by the lack of intravenous contrast. This limits evaluation of the solid organs and vasculature. LUNG BASES: There are small bilateral pleural effusions. LIVER: The liver is mildly enlarged measuring 19.7 cm in long axis. BILE DUCTS: There is no intrahepatic or extrahepatic biliary dilatation. GALLBLADDER: The gallbladder is not visualized. Surgical clips are noted in the gallbladder fossa. PANCREAS: The pancreas is normal, without mass or ductal dilatation. SPLEEN: Normal in size and appearance. UPPER GI TRACT: Evaluation of the gastrointestinal tract is limited by incomplete gastric distention. The upper GI tract is unremarkable. SMALL BOWEL AND MESENTERY: The small bowel is normal in contour, course, and caliber. There is no obstruction or dilatation. COLON: There are multiple diverticula of the descending colon. There is no pericolonic inflammatory change. There is mucosal thickening of the rectal mucosa and anus. ADRENALS: Normal bilaterally. KIDNEYS: The kidneys are normal in shape, size, contour, and axis. There is no hydronephrosis or nephrolithiasis. BLADDER: The bladder is smooth in contour. PELVIC ORGANS: The uterus and adnexa are grossly normal for technique. AORTA: The aorta is normal. IVC: Unremarkable LYMPH NODES: There is no lymphadenopathy by size criteria. ABDOMINAL WALL: There is no evidence for abdominal wall hernia. BONES AND SOFT TISSUES: Degenerative changes are noted. The patient is status post multilevel laminectomy. OTHER: There is a small amount of perihepatic and perisplenic ascites. IMPRESSION: 1. HEPATOMEGALY. 2. SMALL AMOUNT OF ASCITES. 3. SMALL BILATERAL PLEURAL EFFUSIONS. 4. STATUS POST MASTECTOMY. 5. DIVERTICULOSIS. 6. THERE IS MUCOSAL THICKENING OF THE RECTAL MUCOSA EXTENDING TO THE ANUS. THE DIFFERENTIAL INCLUDES NEOPLASM. RECOMMEND CORRELATION WITH DIRECT VISUALIZATION 1 of 2 Assess/Plan/Problems-Billing Assessment: This is a 67 year old female patient with PMHx significant for HTN, HLP, DMII, TIA and recent pancreatitis that has had several inconclusive admissions for abdominal pain, n/v/d that has no clear etiology, but is improving last 24 hours. - Patient Problems (1) Diarrhea Code(s): R19.7 - DIARRHEA, UNSPECIFIED SNOMED Code(s): 41416226 Comment: - GI and ID following - No clear infectious agent or etiology - Colonoscopy biopsies as above - C. diff negative. Stool lactoferrin positive but no IBD on colonoscopy. Stool culture negative. Heme negative - Improvement now on Creon and xifaxin (2) HLD (hyperlipidemia) Code(s): E78.5 - HYPERLIPIDEMIA, UNSPECIFIED SNOMED Code(s): 04460389 Comment: - Statin on hold, although nause and diarrhea are persistent - Hx of intracerebral stenosis of proximal portion of MCA - Do not feel statin is the culprit of her symptoms (3) HTN (hypertension) Code(s): I10 - ESSENTIAL (PRIMARY) HYPERTENSION SNOMED Code(s): 42260197 Comment: - Normotensive, continue losartan and amlodipine. (4) Diabetes Code(s): E11.9 - TYPE 2 DIABETES MELLITUS WITHOUT COMPLICATIONS SNOMED Code(s) : 91230562 Comment: - Hypoglycemia likely r/t poor PO intake - Continue to hold metformin - Lispro SSI only , DC long acting lantus for now (5) Obstructive airway disease Code(s): J44.9 - CHRONIC OBSTRUCTIVE PULMONARY DISEASE, UNSPECIFIED SNOMED Code(s): 57781163 Comment: - COPD vs asthma? - Maintained on Dulera with PRN albuterol (6) DVT prophylaxis Code(s): JYD7316 - SNOMED Code(s): 057173823 Comment: - Ambulatory, DC lovenox - SCDs while in bed (7) Full code status Current Visit: Yes Status: Acute Code(s): Z78.9 - OTHER SPECIFIED HEALTH STATUS SNOMED Code(s): 097705386 (8) History of TIA (transient ischemic attack) Comment: - On plavix (9) Diastolic CHF Code(s): I50.30 - UNSPECIFIED DIASTOLIC (CONGESTIVE) HEART FAILURE SNOMED Code (s): 718229908 Comment: - Had fluid overload at admission, likely 2/2 to agressive fluids - Will order BNP, CXR and give lasix IV, suspect she is still overloaded and now clinically short of breath today. - ECHO on 11/18 with preserved systolic fx, EF of 60-65% and diastolic dysfunction - STRICT I&Os, daily weights and low Status and Disposition: Remain inpatient, slowly improving. Counseling and/or Coordination of Care Minutes: coordinated with patient and staff
[2017-11-21] MEDS: Mometasone/Formoter 100/5 MDI INH SCH ×2 (07:55→21:14)
[2017-11-21] MEDS: Clopidogrel TAB* 75 MG PO SCH (08:50)
[2017-11-21] MEDS: guaiFENesin ER TAB 600 MG PO SCH ×2 (08:50→21:53)
[2017-11-21] MEDS: Losartan TAB* 25 MG PO SCH (08:50)
[2017-11-21] MEDS: Furosemide IV* 10 MG/ML 2 ML VIAL (20 MG) IV SCH (08:50)
[2017-11-21] MEDS: RiFAXimin* 550 MG TAB PO SCH ×3 (08:50→21:52)
[2017-11-21] MEDS: Pancrelipase CAP* 5,000 UNITS CAP PO SCH ×3 (08:50→16:44)
[2017-11-21] MEDS: amLODIPine TAB* 5 MG PO SCH (08:50)
[2017-11-21] MEDS: Insulin LISPRO* 1 UNITS UNIT SUBCUT SCH ×4 (08:52→21:55)
[2017-11-21] MEDS ORDERED: Furosemide IV* 10 MG/ML 2 ML VIAL (20 MG) IV ONE ×2 (09:00→11:29)
--- NOTE | 2017-11-21 10:31 | PN ---
Progress Note - Progress Note Date of Service: 11/21/17 SOAP: Subjective: CC: diarrhea HPI: 67 year old woman with her 3rd episode of vomiting, non bloody diarrhea and fever in the last month; previous work up negative, as is her current one including colonoscopy. Off antibiotics since Tuesday and appetite improved, no abd pain, vomiting, or diarrhea. Objective: Vital Signs Temp 36.4 C 11/21/17 07:41 Pulse 69 11/21/17 07:41 Resp 16 11/21/17 07:41 BP 146/43 11/21/17 07:41 Pulse Ox 95 11/21/17 07:41 Intake & Output 11/20/17 11/21/17 11/21/17 18:59 06:59 18:59 Intake Total 2430 1200 Output Total 1400 0 Balance 1030 1200 Weight 217 lb 9.6 oz Intake: Oral 2430 1200 Output: Urine 1400 0 Other: Estimated Void Large Date of Last Bowel 0 Movement # Bowel Movements 0 2 Estimated Stool Amount Small # Voids 1 Gen:awake, no distress HEENT:PERRL, MMM Heart:RRR no murmur Lungs:CTA BL Abd:+BS NTND soft Skin: no rash MSK: no spine tenderness Laboratory Results - last 24 hr 11/20/17 11/20/17 11/20/17 12:02 16:24 16:37 POC Glucose (mg/dL) 300 H 132 H B-Natriuretic Peptide 175 H 11/20/17 11/21/17 21:50 07:49 POC Glucose (mg/dL) 180 H 120 H B-Natriuretic Peptide Microbiology 11/19/17 01:11 Stool Culture - Final Stool Stool Gross Appearance - Final Shiga Toxin I & II - Final 11/16/17 07:40 Aerobic Blood Culture - Final Blood Venous No Growth Day 5 Anaerobic Blood Culture - Final No Growth Day 5 11/15/17 22:45 Aerobic Blood Culture - Final Blood Venous No Growth Day 5 Anaerobic Blood Culture - Final No Growth Day 5 11/16/17 10:57 Stool Culture - Final Stool Shiga Toxin I & II - Final 11/16/17 05:25 Urine Culture - Final Urine No Growth (<1,000 CFU/mL) 11/16/17 10:57 Stool Gross Appearance - Final Stool C. difficile DNA Amplification - Final 027 Presumptive NEGATIVE Toxigenic C.diff NEGATIVE Stool Lactoferrin - Final 11/15/17 18:10 Influenza Types A,B Antigen (MALGORZATA) - Final Nasopharyngeal Specimen received for Influenza A/B Molecular testing Assessment: 1. diarrhea, vomiting, fever; resolved, off of antibiotics, continues to improve ; emperic rifaximin per primary team. stool pathogen PCR pending but low likelihood of infection. 2. obesity Plan: 1. fu GI panel and 24 hr urine HIAA, fu with me 1-2 weeks Discussed Jalyn Hughes [employer]
--- NOTE | 2017-11-21 11:24 | PN ---
Subjective Date of Service: 11/21/17 Interval History: Patient seen and examined. Overall improvement per patient report. Still with SOB on exertion but edema improved. States no diarrhea today, had one formed stool this AM and abdominal pain greatly improved. Denies fever, chills or headache. No chest pain, no further complaints. Family History: Unchanged from Admission Social History: Unchanged from Admission Past Medical History: Unchanged from Admission Objective Active Medications: Acetaminophen (Tylenol Tab*) 650 mg PO Q6H PRN PRN Reason: FEVER/PAIN Last Admin: 11/16/17 16:10 Dose: 650 mg Albuterol (Ventolin 2.5 Mg/3 Ml Neb.Alma*) 2.5 mg INH Q4H PRN PRN Reason: SOB/WHEEZING Amlodipine Besylate (Norvasc Tab*) 10 mg PO DAILY [facility] Last Admin: 11/21/17 08:50 Dose: 10 mg Clopidogrel Bisulfate (Plavix Tab*) 75 mg PO DAILY [facility] Last Admin: 11/21/17 08:50 Dose: 75 mg Dextrose (D50w Syringe 50 Ml*) 12.5 gm IV PUSH .FOR FS < 60 - SS PRN PRN Reason: FS < 60 Furosemide (Lasix Iv*) 20 mg IV DAILY [facility] Last Admin: 11/21/17 08:50 Dose: 20 mg Guaifenesin (Mucinex*) 600 mg PO BID [facility] Last Admin: 11/21/17 08:50 Dose: 600 mg Insulin Human Lispro (Humalog*) 0 units SUBCUT ACHS [facility] PRN Reason: Protocol Last Admin: 11/21/17 08:52 Dose: Not Given Losartan Potassium (Cozaar Tab*) 100 mg PO DAILY [facility] Last Admin: 11/21/17 08:50 Dose: 100 mg Mometasone Furoate/Formoterol Fumar (Dulera 100/5 Mdi*) 2 puff INH BID [facility] Last Admin: 11/21/17 07:55 Dose: 2 puff Ondansetron HCl (Zofran Inj*) 4 mg IV Q6H PRN PRN Reason: NAUSEA Last Admin: 11/18/17 15:41 Dose: 4 mg Pancrelipase (Zenpep Delayed Cap*) 5,000 units PO TID WITH MEALS [facility] Last Admin: 11/21/17 08:50 Dose: 5,000 units Prochlorperazine Edisylate (Compazine Inj*) 5 mg IV Q6H PRN PRN Reason: NAUSEA/VOMITING Rifaximin (Xifaxan*) 550 mg PO TID PRASANNA Stop: 12/03/17 09:01 Last Admin: 11/21/17 08:50 Dose: 550 mg Vital Signs - 8 hr 11/21/17 11/21/17 03:26 07:41 Temperature 97.4 F 97.6 F Pulse Rate 64 69 Respiratory 18 16 Rate Blood Pressure 142/45 146/43 (mmHg) O2 Sat by Pulse 95 95 Oximetry Oxygen Devices in Use Now: None Appearance: Alert, NAD Eyes: No Scleral Icterus, PERRLA Ears/Nose/Mouth/Throat: Mucous Membranes Moist Neck: NL Appearance and Movements; NL JVP, Trachea Midline Respiratory: Symmetrical Chest Expansion and Respiratory Effort, - - crackles at bilateral bases Cardiovascular: NL Sounds; No Murmurs; No JVD, RRR Abdominal: NL Sounds; No Tenderness; No Distention, No Hepatosplenomegaly Extremities: - - bilateral ankle edema, improved today Skin: No Rash or Ulcers Neurological: Alert and Oriented x 3, NL Muscle Strength and Tone Nutrition: Taking PO's Result Diagrams: 11/19/17 07:13 11/19/17 07:14 Additional Lab and Data: Lab Results Microbiology and Other Data: Microbiology 11/16/17 10:57 Stool Gross Appearance - Final Stool C. difficile DNA Amplification - Final 027 Presumptive NEGATIVE Toxigenic C.diff NEGATIVE Stool Lactoferrin - Final Microbiology 11/16/17 10:57 Stool Stool Culture - Final 11/16/17 10:57 Stool Shiga Toxin I & II - Final 11/16/17 07:40 Blood Venous Aerobic Blood Culture - Preliminary No Growth Day 3 11/16/17 07:40 Blood Venous Anaerobic Blood Culture - Preliminary No Growth Day 3 11/19/17 01:11 Stool Stool Gross Appearance - Final 11/15/17 22:45 Blood Venous Aerobic Blood Culture - Preliminary No Growth Day 3 11/15/17 22:45 Blood Venous Anaerobic Blood Culture - Preliminary No Growth Day 3 11/16/17 05:25 Urine Urine Culture - Final No Growth (<1,000 CFU/mL) 11/16/17 10:57 Stool Stool Gross Appearance - Final 11/16/17 10:57 Stool C. difficile DNA Amplification - Final 027 Presumptive NEGATIVE Toxigenic C.diff NEGATIVE 11/16/17 10:57 Stool Stool Lactoferrin - Final 11/15/17 18:10 Nasopharyngeal Influenza Types A,B Antigen (MALGORZATA) - Final Specimen received for Influenza A/B Molecular testing ERVIN MELENDEZ [id number] Page: 1 of 2 Patient Name: ERVIN MELENDEZ Pathology Number: [id number] Med.Rec. #: [id number] Collection Date: 11/17/17 Acct. Number#: [id number] Received Date: 11/17/17 : 1950 Location: [facility] Gender: F Status: [facility] Submitting Physician: Jose Sanchez MD Other Physician: Jonas Baires MD FINAL DIAGNOSIS 1. Colon, cecum, biopsy: -- Sessile serrated adenoma. -- No high grade dysplasia or malignancy. 2. Colon, right, biopsy: -- Benign colonic mucosa with no significant pathologic abnormalities. -- No evidence of microscopic colitis. 3. Colon, ascending, biopsy: -- Hyperplastic polyp. 4. Colon, left, biopsy: -- Benign colonic mucosa with no significant pathologic abnormalities. -- No evidence of microscopic colitis. 5. Colon, rectum, biopsy: -- Benign colonic mucosa with no significant pathologic abnormalities. -- No evidence of microscopic colitis. Diagnostic Imaging: Patient Name: ERVIN MELENDEZ Medical Record#: [id number] Ordering Physician: Tae MAHONEY Acct.#: [id number] : 1950 Age: 67 Sex: F Location: [address] [place] [address] - MEDICAL Exam Date: 11/18/17 1212 ADM Status: ADM IN Order Information: CT ABD/PEL W/O Accession Number: [id number] CPT: 40539 CLINICAL HISTORY: Abdominal pain COMPARISON: April 24, 2015 TECHNIQUE: Multiple contiguous axial CT scans were obtained of the abdomen and pelvis, without intravenous contrast enhancement. Coronal and sagittal multiplanar reformations are submitted for review. Oral contrast was administered. FINDINGS: The study is limited by the lack of intravenous contrast. This limits evaluation of the solid organs and vasculature. LUNG BASES: There are small bilateral pleural effusions. LIVER: The liver is mildly enlarged measuring 19.7 cm in long axis. BILE DUCTS: There is no intrahepatic or extrahepatic biliary dilatation. GALLBLADDER: The gallbladder is not visualized. Surgical clips are noted in the gallbladder fossa. PANCREAS: The pancreas is normal, without mass or ductal dilatation. SPLEEN: Normal in size and appearance. UPPER GI TRACT: Evaluation of the gastrointestinal tract is limited by incomplete gastric distention. The upper GI tract is unremarkable. SMALL BOWEL AND MESENTERY: The small bowel is normal in contour, course, and caliber. There is no obstruction or dilatation. COLON: There are multiple diverticula of the descending colon. There is no pericolonic inflammatory change. There is mucosal thickening of the rectal mucosa and anus. ADRENALS: Normal bilaterally. KIDNEYS: The kidneys are normal in shape, size, contour, and axis. There is no hydronephrosis or nephrolithiasis. BLADDER: The bladder is smooth in contour. PELVIC ORGANS: The uterus and adnexa are grossly normal for technique. AORTA: The aorta is normal. IVC: Unremarkable LYMPH NODES: There is no lymphadenopathy by size criteria. ABDOMINAL WALL: There is no evidence for abdominal wall hernia. BONES AND SOFT TISSUES: Degenerative changes are noted. The patient is status post multilevel laminectomy. OTHER: There is a small amount of perihepatic and perisplenic ascites. IMPRESSION: 1. HEPATOMEGALY. 2. SMALL AMOUNT OF ASCITES. 3. SMALL BILATERAL PLEURAL EFFUSIONS. 4. STATUS POST MASTECTOMY. 5. DIVERTICULOSIS. 6. THERE IS MUCOSAL THICKENING OF THE RECTAL MUCOSA EXTENDING TO THE ANUS. THE DIFFERENTIAL INCLUDES NEOPLASM. RECOMMEND CORRELATION WITH DIRECT VISUALIZATION 1 of 2 Assess/Plan/Problems-Billing Assessment: This is a 67 year old female patient with PMHx significant for HTN, HLP, DMII, TIA and recent pancreatitis that has had several inconclusive admissions for abdominal pain, n/v/d that has no clear etiology. GI status improving last 48 hours, but has mild fluid overload. - Patient Problems (1) Diarrhea Code(s): R19.7 - DIARRHEA, UNSPECIFIED SNOMED Code(s): 26890233 Comment: - GI and ID signed off. F/U outpatient - No clear infectious agent or etiology, but responding to rifaximin and creon last 48 hours - Colonoscopy biopsies as above - C. diff negative. Stool lactoferrin positive but no IBD on colonoscopy. Stool culture negative. Heme negative (2) HLD (hyperlipidemia) Code(s): E78.5 - HYPERLIPIDEMIA, UNSPECIFIED SNOMED Code(s): 11664650 Comment: - Can restart statin at discharge (3) HTN (hypertension) Code(s): I10 - ESSENTIAL (PRIMARY) HYPERTENSION SNOMED Code(s): 46974408 Comment: - Normotensive, continue losartan and amlodipine. (4) Diabetes Code(s): E11.9 - TYPE 2 DIABETES MELLITUS WITHOUT COMPLICATIONS SNOMED Code(s) : 23925610 Comment: - Hypoglycemia resolved - Restart metformin at DC - Continue SS lispro (5) Obstructive airway disease Code(s): J44.9 - CHRONIC OBSTRUCTIVE PULMONARY DISEASE, UNSPECIFIED SNOMED Code(s): 70237994 Comment: - COPD vs asthma? - Maintained on Dulera with PRN albuterol - No wheeze noted (6) DVT prophylaxis Code(s): NNL5613 - SNOMED Code(s): 624507797 Comment: - Ambulatory, DC lovenox - SCDs while in bed (7) Full code status Current Visit: Yes Status: Acute Code(s): Z78.9 - OTHER SPECIFIED HEALTH STATUS SNOMED Code(s): 252887108 (8) History of TIA (transient ischemic attack) Comment: - On plavix (9) Diastolic CHF Code(s): I50.30 - UNSPECIFIED DIASTOLIC (CONGESTIVE) HEART FAILURE SNOMED Code (s): 714883252 Comment: - Had fluid overload at admission, likely 2/2 to agressive fluids - BNP mildly elevated, CXR with pulmonary edema - Continue IV lasix today - ECHO on 11/18 with preserved systolic fx, EF of 60-65% and diastolic dysfunction - STRICT I&Os, daily weights and low sodium diet Status and Disposition: Remain inpatient, slowly improving. Will DC to home when euvolemic. Counseling and/or Coordination of Care Minutes: coordinated with Dr. Sepulveda.
[2017-11-22] MEDS: Mometasone/Formoter 100/5 MDI INH SCH (08:43)
[2017-11-22 09:13] VITALS: BP 153/50
[2017-11-22] MEDS: Insulin LISPRO* 1 UNITS UNIT SUBCUT SCH ×2 (09:23→12:41)
[2017-11-22] MEDS: RiFAXimin* 550 MG TAB PO SCH ×2 (09:24→12:41)
[2017-11-22] MEDS: guaiFENesin ER TAB 600 MG PO SCH (09:24)
[2017-11-22] MEDS: Losartan TAB* 25 MG PO SCH (09:24)
[2017-11-22] MEDS: amLODIPine TAB* 5 MG PO SCH (09:24)
[2017-11-22] MEDS: Furosemide IV* 10 MG/ML 2 ML VIAL (20 MG) IV SCH (09:24)
[2017-11-22] MEDS: Clopidogrel TAB* 75 MG PO SCH (09:24)
[2017-11-22] MEDS: Pancrelipase CAP* 5,000 UNITS CAP PO SCH ×2 (09:25→11:42)
--- NOTE | 2017-11-23 00:15 | DS ---
CC: Dr. Quinton Baires * DISCHARGE SUMMARY: DATE OF ADMISSION: 11/16/17 DATE OF DISCHARGE: 11/22/17 PRIMARY CARE PHYSICIAN: Dr. Quinton Baires. ADMITTING PHYSICIAN: During this hospitalization, Dr. Tiny Lorenz. ATTENDING PHYSICIAN FOR THIS HOSPITALIZATION: Dr. Mayda Browne * (DICTATED BY JANE NUNN NP) HOSPITAL COURSE: This is a pleasant 67-year-old female patient, who presented to the emergency department after having multiple admissions and workups at [facility] for persistent nausea, vomiting, and diarrhea. The patient had made multiple trips to the emergency room at [facility] since . The patient actually had a TIA at that time, was following with Dr. Schneider and was started on Lipitor and Plavix in October. The patient then on 11/05/17, the patient began having persistent diarrhea and vomiting, which brought her to the emergency room for several workups. On the , she was diagnosed with acute pancreatitis with an elevated lipase of 600 and possible colitis. The patient was discharged and then was readmitted on for recurrent diarrhea and vomiting and trembling. She had a CT scan of the abdomen and pelvis. She had high fever and hypotension at that time. She was placed on Flagyl for colitis and then discharged to home on 11/13/17. 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 Baires, her primary care, who had made a referral to the GI doctor. At that point, the patient persisted again with nausea, vomiting, and diarrhea, but then persisted with progressive weakness. The patient became dehydrated and then came to [facility] for evaluation as per the direction of her primary care provider. After patient's admission, she was seen by Infectious Disease and also by GI. The patient did have some colitis in the past, it was questionable whether she had ischemic colitis versus an infectious colitis; however, she did undergo a colonoscopy with Dr. Jose Sanchez on 11/17/17. That colonoscopy did not yield any pathologic abnormalities. She did have biopsies taken in 5 different locations, which showed no evidence of microscopic colitis and no pathologic findings. No dysplasia and no malignancy. She did have several polyps removed , otherwise no further issues found with her procedure. The patient was also seen by Infectious Disease. Dr. Sepulveda saw the patient initially on 11/18/17 and recommended stopping her Cipro and Flagyl, was checking stool samples and PCR and urine for HIAA. However, the patient did not yield anything in stool cultures and blood cultures or in the rest of her workup. The patient was still having diarrhea and still having abdominal pain. Given her subjective complaints of abdominal pain and diarrhea and her recent history of pancreatitis , we started the patient on Creon for pancreatic insufficiency and made some dietary modifications. Abdominal pain improved within 24 hours. The patient was also started on rifaximin for IBS-D dosing at 550 mg 3 times a day. Again within 24 to 48 hours, her diarrhea subsided, her abdominal pain subsided and her appetite improved. Also of significant note, because the patient did have high white count and fever and diarrhea when she was initially admitted, she was given aggressive fluid hydration, several bags of normal saline and maintenance IV hydration. After that she did become somewhat fluid overloaded, she was given Lasix on the and then again on the , , and . The patient responded very well to the IV Lasix. She does have some history of diastolic dysfunction, but has not had history of heart failure in the past. She had some congested pulmonary vasculature on her chest x-ray. Again, this is treated with IV diuretics. She had no further issues with diarrhea or abdominal pains after that, so she completely resolved off antibiotics and was signed off by Infectious Disease and GI at that time. The patient was subsequently cleared for discharge on . PHYSICAL EXAMINATION: Vital Signs: Temperature 98.4, heart rate 67, blood pressure 153/50, respiratory rate 16, saturating at 97% on room air. HEENT: The patient is atraumatic, normocephalic. PERRLA with nonicteric sclerae. Oral mucosa is moist. She is edentulous. Neck is supple, nontender. No carotid bruit auscultated. No thyromegaly appreciated. Cardiovascular: S1, S2 are present. No murmurs, gallops or rubs noted. Rate and rhythm are regular. Lungs are clear at the apices bilaterally. She has some crackles at the bases. Abdomen is soft, nontender, nondistended. Moderately obese. Positive bowel sounds in all 4 quadrants. : Deferred. Musculoskeletal: There is no clubbing, no cyanosis. She has trace bipedal edema, +1 nonpitting. She has a steady gait. Distal pulses intact. Gross motor and sensation are intact. Neurologic: Grossly intact. Psychiatric: She is cooperative and appropriate. LABORATORY DATA: Final labs. WBC is 5.8, down from 24.5; RBC 3.21; hemoglobin 9.8; hematocrit 29; platelets 210,000. Sodium 137, potassium 3.4 that was treated, chloride 109, CO2 of 23, BUN 22, creatinine 0.96. GFR 57.6. Glucose ranging from 78 through 200. Calcium 7.7, magnesium 2.4. MEDICATIONS: At the time of discharge include: 1. Guaifenesin 600 mg 2 times a day. 2. Advair 1 puff 2 times a day. 3. Mag-Ox 400 mg 2 times a day. 4. Losartan 100 mg daily. 5. Metformin 1000 mg daily. 6. Levemir 80 units b.i.d. 7. Plavix 75 mg daily. 8. Amlodipine 5 mg daily. 9. Hydrochlorothiazide 25 mg daily. 10. Rifaximin 550 mg 3 times a day. 11. Pancrelipase 4200 units 3 times a day before meals. 12. Lasix 20 mg daily, but for 5 days only. DISCHARGE DIAGNOSES: 1. Abdominal pain, nausea, vomiting, and diarrhea, likely related to irritable bowel syndrome and pancreatic insufficiency. 2. Hypertension. 3. Hyperlipidemia. 4. Diabetes. 5. Obstructive airway disease. 6. History of transient ischemic attack. 7. Acute diastolic heart failure. The patient was discharged in stable condition in the care of family on . The patient verbalized her understanding of her discharge instructions of her medications at the time of discharge and the changes in her plan. She was instructed to follow up with Dr. Baires within the next week. She chooses to follow up with GI locally. She can discuss this with Dr. Baires. However, after just having colonoscopy, it is not likely that she will need this, she should continue her course of rifaximin for her 14-day completion and then reassess either with her primary care or GI doctor to see if she should continue on any further GI medications for IBS. JANE NUNN, CARDIOTHORACIC ICU RN [id number]/[facility] #: [id number] [facility] HOSPITALLawrence
== END 2017-11-22 15:15 | disposition home or self-care (01) | DRG 438 ==
LOC: ED 15:24 → MED 11-16 00:13
PROVIDERS: ADMIT Hospitalist; ATTEND Internal Medicine
PROC: 0DBP8ZX Excision of Rectum, Via Natural or Artificial Opening Endoscopic, Diagnostic (ICD-10-PCS; principal; 2017-11-17)
PROC: 0DBF8ZX Excision of Right Large Intestine, Via Natural or Artificial Opening Endoscopic, Diagnostic (ICD-10-PCS; 2017-11-17)
PROC: 0DBG8ZX Excision of Left Large Intestine, Via Natural or Artificial Opening Endoscopic, Diagnostic (ICD-10-PCS; 2017-11-17)
PROC: 0DBK8ZX Excision of Ascending Colon, Via Natural or Artificial Opening Endoscopic, Diagnostic (ICD-10-PCS; 2017-11-17)
PROC: 0DBH8ZX Excision of Cecum, Via Natural or Artificial Opening Endoscopic, Diagnostic (ICD-10-PCS; 2017-11-17)
DX: K86.89 Other specified diseases of pancreas (principal); I50.31 Acute diastolic (congestive) heart failure; E87.70 Fluid overload, unspecified; Z68.41 Body mass index [BMI] 40.0-44.9, adult; I13.0 Hypertensive heart and chronic kidney disease with heart failure and stage 1 through stage 4 chronic kidney disease, or unspecified chronic kidney disease; K58.0 Irritable bowel syndrome with diarrhea; E86.0 Dehydration; K63.5 Polyp of colon; K57.30 Diverticulosis of large intestine without perforation or abscess without bleeding; J98.8 Other specified respiratory disorders; E11.9 Type 2 diabetes mellitus without complications; E78.5 Hyperlipidemia, unspecified; R91.8 Other nonspecific abnormal finding of lung field; K64.4 Residual hemorrhoidal skin tags; E66.9 Obesity, unspecified; R06.02 Shortness of breath; Z90.49 Acquired absence of other specified parts of digestive tract; Z80.42 Family history of malignant neoplasm of prostate; Z82.49 Family history of ischemic heart disease and other diseases of the circulatory system; Z88.0 Allergy status to penicillin; Z88.8 Allergy status to other drugs, medicaments and biological substances; Z86.73 Personal history of transient ischemic attack (TIA), and cerebral infarction without residual deficits; Z79.84 Long term (current) use of oral hypoglycemic drugs; Z79.02 Long term (current) use of antithrombotics/antiplatelets
CPT/HCPCS: 36415; 71045; 74176; 80048; 80053; 80061; 81003; 81015; 82150; 82550; 82710; 82785; 83036; 83497; 83605; 83630; 83690; 83735; 83880; 84484; 85025; 85730; 86140; 86703; 87040; 87045; 87046; 87086; 87493; 87502; 87507; 87899; 88305; 93005; 93306; 94640; 94760; 96374; 99156; 99157; 99285; A9270-GY; J0744; J0780; J1650; J1940; J1956; J2250; J2405; J3010; J3475

== ENCOUNTER 2018-11-28 09:05 | Emergency (ER) | payer MEDICARE, MEDICAID ==
[2018-11-28 09:28] VITALS: BP 190/55
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
== END 2018-11-28 10:11 | disposition home or self-care (01) ==
LOC: UCCORT 09:05
DX: M79.602 Pain in left arm (principal); I10 Essential (primary) hypertension; R11.0 Nausea; E11.9 Type 2 diabetes mellitus without complications; Z79.4 Long term (current) use of insulin; Z88.1 Allergy status to other antibiotic agents; Z88.8 Allergy status to other drugs, medicaments and biological substances; Z88.5 Allergy status to narcotic agent; Z88.0 Allergy status to penicillin
CPT/HCPCS: 93005; 99212; G0463